=== PATIENT | male | born 1975 | race Caucasian/White ===

== ENCOUNTER 2017-04-08 16:52 | Inpatient (IN) | payer OTHER ==
[~2017-04-08] VITALS: Ht 182.9 cm; Wt 190.5 kg
[~2017-04-08 16:52] MED LIST: ATIVAN0.5 M1 PO; FOLIC ACID1 M1 PO; LISINOPRIL5 M1 PO; METOPROLOL TART25 M1 PO; MULTI-DAY VITA1 EACH PO; SEA-OMEGA 50 C1 EACH PO; TART CHERRY CA1 EACH PO; VITAMIN B-1100 MG PO; ZOLPIDEM TARTRAT5 M1 PO
--- NOTE | 2017-04-08 17:15 | NUR ---
PER FAMILY, PT HEAVILY INTOXICATED, PER FAMILY HE WILL NEED RESTRAINTS, AND MOTHER LEFT, IV ESTABLISHED UNDER DURESS, PT PULLED OUT IV. OBESE HEAVY MALE, MULTIPLE STAFF TO GET ON STRETCHER.
--- NOTE | 2017-04-08 17:55 | NUR ---
PT REPORTS I DONT TAKE ANY F....ING MEDS I JUST DRINK
--- NOTE | 2017-04-08 17:55 | NUR ---
SITTER IN PLACE. PT REMAINS INTERMITTANTLY BELIGERANT. AFTER LABS DRAWN PT RIPPED OFF BANDAID.
[2017-04-08 18:01] LABS: ABSOLUTE BASOPHIL COUNT 0.1 /CUMM (0.0-0.2); ABSOLUTE EOSINOPHIL COUNT 0.1 /CUMM (0.0-0.7); ABSOLUTE GRANULOCYTE CT 7.1 /CUMM (1.4-6.5); ABSOLUTE LYMPH COUNT 4.5 /CUMM (1.2-3.4); ABSOLUTE MONOCYTE COUNT 0.7 /CUMM (0.10-0.60); BASOPHIL % 0.5 % (0.0-2.0); EOSINOPHIL % 1.2 % (0-5); GRANULOCYTE % 56.5 % (42.2-75.2); HEMATOCRIT 47.9 % (42-52); MEAN CORPUSCULAR HGB 28.9 PG (27.0-31.0); MEAN CORPUSCULAR HGB CONC 33.6 G/DL (33.0-37.0); MEAN CORPUSCULAR VOLUME 85.9 FL (80.0-94.0); MEAN PLATELET VOLUME 8.1 FL (7.4-10.4); PLATELET COUNT 180 /CUMM (130-400); RBC DISTRIBUTION WIDTH 15.8 % (11.5-14.5); RED BLOOD CELL CT 5.57 /CUMM (4.70-6.10); WHITE BLOOD CELL COUNT 12.6 /CUMM (4.8-10.8)
--- NOTE | 2017-04-08 18:15 | NUR ---
PLACED IN HOSPITAL BED FOR SAFETY.
--- NOTE | 2017-04-08 18:35 | NUR ---
PER , DRINKING FOR 11 DAYS STRAIGHT, HX OF AFIB WHEN WITHDRAWS
--- NOTE | 2017-04-08 18:48 | RADIOLOGY REPORT ---
EXAMINATION: XR LUMBOSACRAL SPINE CLINICAL INFORMATION: Severe lower back pain. COMPARISON: None TECHNIQUE: AP and lateral views of the lumbosacral spine were obtained. FINDINGS: Lumbar: Bone mineral density, vertebral body height, and alignment is maintained without evidence of acute fracture or dislocation. There is no underlying curvature. No focal destructive or sclerotic osseous lesions are seen. There is mild loss of disc and joint space height with mild anterior endplate spurring. There is mild joint space narrowing in the visualized portions of the hips. IMPRESSION: Mild degenerative changes as noted.
--- NOTE | 2017-04-08 19:04 | NUR ---
PT AMBULATORY WITH SEMI STEADY GAIT TO BR WITH ASSIST OF 5 MALE EMPLOYEES. PT REMAINS AGITATED INTERMITTANTLY.
--- NOTE | 2017-04-08 19:05 | ULTRASOUND REPORT ---
EXAMINATION: US TRIPLEX LOWER EXTREMITY, LEFT CLINICAL INFORMATION: Left calf pain. COMPARISON: None. TECHNIQUE: Color-flow triplex imaging with spectral analysis and compression Doppler were performed on the lower extremity. FINDINGS: Respiratory variation, normal compression and augmented flow are noted throughout the left lower extremity. The visualized common femoral vein, femoral vein, profunda femoral vein, popliteal vein and midcalf peroneal and posterior tibial venous segments show no evidence of deep venous thrombosis. There is no Harrison's cyst. IMPRESSION: Normal triplex scan without evidence of deep venous thrombosis involving the lower extremity.
--- NOTE | 2017-04-08 19:14 | NUR ---
CALLED TO ROOM PT RPORTS HE NEEDS SOMETHING FOR WITHDRAWAL, VSS PT REPORTS HE SEIZES WHEN HE DRINKS. BP 132/82 HR 100 T98.4 R 24 SAT 100%
--- NOTE | 2017-04-08 19:19 | ED PSYCHIATRIC COMPLAINT ---
History of Present Illness General Chief Complaint: ETOH/Drug Related Complaint Stated Complaint: ETOH Source: patient Exam Limitations: poor historian, intoxication Vital Signs & Intake/Output Vital Signs & Intake/Output Vital Signs Date Time Temp Pulse Resp B/P B/P Pulse O2 O2 Flow FiO2 Mean Ox Delivery Rate 04/09 0545 98.0 93 22 144/74 04/09 0545 98.0 93 22 144/74 93 BIPAP 04/09 0445 100 22 130/72 04/09 0445 97.8 100 22 130/72 94 Room Air 04/09 0131 96.3 95 20 140/69 96 Room Air 04/09 0130 96.3 95 20 140/69 04/08 2113 98.8 88 22 135/79 04/08 2113 98.8 88 22 135/79 98 04/08 1919 98.4 100 24 132/82 100 Room Air 04/08 1757 98.1 93 30 Allergies Coded Allergies: NO KNOWN ALLERGIES (02/02/16) Reconcile Medications C/Sourcherry/Celery/Grape Seed (Tart Linn Capsule) 1 EACH CAPSULE 1 CAP PO DAILY SUPPLEMENT (Reported) Fish Oil (Sea-Martelle 50 Capsule) 1 EACH CAPSULE 1 CAP PO DAILY SUPPLEMENT ( Reported) Folic Acid 1 MG TABLET 1 TAB PO DAILY alcohol Lorazepam (Ativan) 0.5 MG TABLET 1 TAB PO BIDP PRN alcohol withdrawal Metoprolol Tartrate 25 MG TABLET 25 MG PO BID heart health Multivitamin (Multi-Day Vitamins) 1 EACH TABLET 1 TAB PO QAM SUPPLEMENT ( Reported) Thiamine HCl (Vitamin B-1) 100 MG TABLET 100 MG PO DAILY SUPPLEMENT Triage Note: PER FAMILY, PT HEAVILY INTOXICATED, PER FAMILY HE WILL NEED RESTRAINTS, AND MOTHER LEFT, IV ESTABLISHED UNDER DURESS, PT PULLED OUT IV. OBESE HEAVY MALE, MULTIPLE STAFF TO GET ON STRETCHER. Triage Nurses Notes Reviewed? yes HPI: Patient presents for evaluation of severe intoxication. Patient states his called the police and he was subsequently transported to the emergency department. He states that he is having severe left calf pain and low back pain. He is unable to state when symptoms began. Symptoms apparently get worse with movement and palpation. Patient admits to drinking more than a fifth of alcohol today. He has been drinking daily for the past week or so. (JESSICA LOGAN,YOGESH Ye) Past History Travel History Traveled to [place] past 21 day No Medical History Any Pertinent Medical History? see below for history Neurological: NONE EENT: NONE Cardiovascular: hypertension Respiratory: obstructive sleep apnea on CPAP Gastrointestinal: NONE Hepatic: NONE Renal: NONE Musculoskeletal: NONE Psychiatric: NONE Endocrine: NONE Blood Disorders: NONE Cancer(s): NONE UPHOLSTERY PARTS SORTER/Reproductive: NONE History of MRSA: No History of VRE: No History of CDIFF: No Isolation History: Standard Surgical History Surgical History: appendectomy Psychosocial History Who do you live with Patient/Self Services at Home None What is your primary language Chinese Tobacco Use: Refused to answer Family History Family History, If Any: MOTHER FH: multiple sclerosis Hx Contributory? No (JESSICA LOGAN,YOGESH Ye) Medical History Cardiovascular: AFIB Psychiatric: REPORTS ONE DETOX SEIZURE AT HOME (PRINCE LOGAN,LARRY) Review of Systems Review of Systems Constitutional: Reports: no symptoms. EENTM: Reports: no symptoms. Respiratory: Reports: no symptoms. Cardiovascular: Reports: no symptoms. GI: Reports: no symptoms. Genitourinary: Reports: no symptoms. Musculoskeletal: Reports: see HPI. Skin: Reports: no symptoms. Neurological/Psychological: Reports: no symptoms. Hematologic/Endocrine: Reports: no symptoms. Immunologic/Allergic: Reports: no symptoms. All Other Systems: Reviewed and Negative (JESSICA LOGAN,YOGESH Ye) Physical Exam Physical Exam General Appearance: SEE BELOW Neurological/Psychiatric: SEE BELOW Comments: Gen.: Well-nourished, well-developed, no acute respiratory distress. Head: Normocephalic, atraumatic. Eyes: Normal inspection bilaterally Ears: Normal inspection bilaterally Nose: Normal inspection Throat/mouth : Moist mucosa Neck: Supple, full range of motion, no goiter Heart: Regular rate and rhythm, no murmurs rubs or gallops Lungs: Clear to auscultation bilaterally with normal air entry Chest: Nontender Back: Normal range of motion, nontender exam, no rashes Abdomen: Soft, nontender, nondistended, normal bowel sounds Extremities: Normal range of motion grossly, equal radial pulses, no cyanosis clubbing or edema, tenderness of the left calf without erythema or palpable cords Neurologic: Cranial nerves grossly intact, speech is slurred Skin: warm and dry Psychiatric: Calm but prone to mild to moderate agitation, cooperative, no apparent delusions or hallucinations SAD PERSONS Done? patient not suicidal (JESSICA LOGAN,YOGESH Ye) Progress Differential Diagnosis: ALCOHOL INTOXICATION, ELECTROLYTE ABNORMALITY Plan of Care: Orders Procedure Date/time Status Heart Healthy Diet 04/09 B Active BASIC ELECTROLYTES PLUS BUN&CR 04/09 0600 Active Pathway - chart 04/09 0549 Active Patient Data 04/09 0531 Active Pathway - chart 04/09 0527 Active ED Holding Orders 04/09 0516 Active Admit to inpatient 04/09 0516 Active Vital Signs 04/09 0516 Active Code Status 04/09 0516 Active EKG 04/09 0455 Active Patient Safety Monitor 04/09 0239 Active House Staff 04/09 UNK Active VTE Mechanical Prophylaxis 04/09 UNK Active CONTIN. POSITIVE AIRWAY PRESS 04/08 2100 Complete CONTIN. POSITIVE AIRWAY PRESS 04/08 1938 Complete CIWA 04/08 1917 Active Intake & Output 04/08 1905 Active D-DIMER 04/08 1742 Complete Patient Safety Monitor 04/08 1726 Active LIPASE 04/08 1708 Complete ETHANOL 04/08 1708 Complete COMPREHENSIVE METABOLIC PANEL 04/08 1708 Complete CBC WITHOUT DIFFERENTIAL 04/08 1708 Complete AMYLASE 04/08 1708 Complete Current Medications Sig/Vamsi Start time Last Medication Dose Stop Time Status Admin Enoxaparin Sodium 40 MG DAILY 04/09 1000 UNVr (Lovenox) Folic Acid 1 MG DAILY 04/09 1000 AC (Folic Acid) 04/11 1001 Multivitamins 1 TAB DAILY 04/09 1000 AC (Theragran Vitamins) Thiamine HCl 100 MG DAILY 04/09 1000 AC (Vitamin B1) 04/11 1001 Lorazepam 2 MG Q8 04/09 0600 AC (Ativan) Acetaminophen 650 MG Q6P PRN 04/09 0545 AC (Tylenol) Cyanocobalamin/ 1 BAG ONCE ONE 04/09 0545 UNVr Thiamine/Pyridoxine 04/09 1344 (Vitamin in I.V.) Sodium Chloride 1,000 ML (Normal Saline 0.9%) Ibuprofen 600 MG Q6P PRN 04/09 0545 AC (Motrin) Oxycodone/ 2 TAB Q6P PRN 04/09 0545 AC Acetaminophen (Percocet) Lorazepam 2 MG ONCE ONE 04/09 0530 CAN (Ativan) 04/09 0531 Lorazepam 2 MG Q2P PRN 04/09 0530 AC (Ativan) Lorazepam 1 MG Q2P PRN 04/09 0530 AC (Ativan) Laboratory Tests 04/08/17 1750: Anion Gap 18 H, Estimated GFR > 60, BUN/Creatinine Ratio 8.8, Glucose 111 H, Calcium 9.1, Total Bilirubin 2.5 H, AST 47, ALT 54, Alkaline Phosphatase 120, Total Protein 8.2, Albumin 4.3, Globulin 3.9, Albumin/Globulin Ratio 1.1, Amylase 30, Lipase 58, D-Dimer High Sensitivty 248 H, CBC w Diff NO MAN DIFF REQ, RBC 5.57, MCV 85.9, MCH 28.9, RDW 15.8 H, MPV 8.1, Gran % 56.5, Lymphocytes % 36.2, Monocytes % 5.6, Eosinophils % 1.2, Basophils % 0.5, Absolute Granulocytes 7.1 H, Absolute Lymphocytes 4.5 H, Absolute Monocytes 0.7 H, Absolute Eosinophils 0.1, Absolute Basophils 0.1, PUBS MCHC 33.6, Serum Alcohol 399.0 7:15 PM PATIENT SIGNED OUT TO ME BY DR LOPEZ. RECEIVED IM INJECTIONS ATIVAN/BENADRYL / HALDOL. CPAP ORDERED. WILL STAY OVERNIGHT FOR SOBRIETY. DOES NOT WANT DETOX. 5:17AM PATIENT FEELING SHAKY, CIWA 12. NOW WANTS IN PATIENT DETOX. NO SI/HI, ATIVAN ADMINISTERED. H/O WD SEIZURE, PREVIOUS RAPID AFIB. CURRENTLY SINUS RHYTHM. D/ W HOSPITALIST. (PRINCE LOGAN,LARRY) Comments: 04/08/2017 7:17:07 PM the patient is worried that he is beginning to withdraw from alcohol. According to his nurse he commented that he does have alcohol withdrawal seizures. He appears anxious and is beginning to escalate and seems to be increasing and agitation. I have ordered IM sedatives with his agreement. Patient signed out to Dr. Martin. (JESSICA LOGAN,YOGESH Ye) Diagnostic Imaging: Viewed by Me: Radiology Read, Ultrasound. Discussed w/RAD: Radiology Read, Ultrasound. Radiology Impression: PATIENT: GABBIE ELLER PRESENT AGE: 41 PATIENT ACCOUNT NO: [id number] : 76 LOCATION: [facility] ORDERING PHYSICIAN: YOGESH LOPEZ MD SERVICE DATE: 04/08/17 EXAM TYPE: US - US- UNILATERAL VENOUS DOPPLER EXAMINATION: US TRIPLEX LOWER EXTREMITY, LEFT CLINICAL INFORMATION: Left calf pain. COMPARISON: None. TECHNIQUE: Color-flow triplex imaging with spectral analysis and compression Doppler were performed on the lower extremity. FINDINGS: Respiratory variation, normal compression and augmented flow are noted throughout the left lower extremity. The visualized common femoral vein, femoral vein, profunda femoral vein, popliteal vein and midcalf peroneal and posterior tibial venous segments show no evidence of deep venous thrombosis. There is no Harrison's cyst. IMPRESSION: Normal triplex scan without evidence of deep venous thrombosis involving the lower extremity. DICTATED BY: DINORA GALE MD DATE/TIME DICTATED:04/08/171852 GENERAL MEDICAL PRACTITIONER:OSMANY DATE/TIME TRANSCRIBED:04/08/171852 CONFIDENTIAL, DO NOT COPY WITHOUT APPROPRIATE AUTHORIZATION. <Electronically signed in Other Vendor System> SIGNED BY: DINORA GALE MD 04/08/171904, PATIENT: GABBIE ELLER PRESENT AGE: 41 PATIENT ACCOUNT NO: [id number] : 76 LOCATION: ER ORDERING PHYSICIAN: YOGESH LOPEZ MD SERVICE DATE: 04/08/17 EXAM TYPE: RAD - XRY-LUMBOSACRAL SPINE AP & LAT EXAMINATION: XR LUMBOSACRAL SPINE CLINICAL INFORMATION: Severe lower back pain. COMPARISON: None TECHNIQUE: AP and lateral views of the lumbosacral spine were obtained. FINDINGS: Lumbar: Bone mineral density, vertebral body height, and alignment is maintained without evidence of acute fracture or dislocation. There is no underlying curvature. No focal destructive or sclerotic osseous lesions are seen. There is mild loss of disc and joint space height with mild anterior endplate spurring. There is mild joint space narrowing in the visualized portions of the hips. IMPRESSION: Mild degenerative changes as noted. DICTATED BY: TAVO MCKEON MD DATE/TIME DICTATED:04/08/171842 GENERAL MEDICAL PRACTITIONER: OSMANY DATE/TIME TRANSCRIBED:04/08/171842 CONFIDENTIAL, DO NOT COPY WITHOUT APPROPRIATE AUTHORIZATION. <Electronically signed in Other Vendor System> SIGNED BY: TAVO MCKEON MD 04/08/171847, PATIENT: GABBIE ELLER PRESENT AGE: 41 PATIENT ACCOUNT NO: [id number] : 76 LOCATION: ER ORDERING PHYSICIAN: YOGESH LOPEZ MD SERVICE DATE: 04/08/17 EXAM TYPE: RAD - [id number], LEFT EXAMINATION: XR TIBIA AND FIBULA, LEFT CLINICAL INFORMATION: Pain. COMPARISON: None TECHNIQUE: AP and lateral views of the left tibia and fibula were obtained. Please note at the time of this dictation, images are labeled right, however according to Margo Silver, the PSA, the left lower extremity was imaged. FINDINGS: Bone mineral density is maintained without evidence of fracture or dislocation. No focal osseous lesions are seen. There is joint space narrowing in the knee with mild hypertrophic productive change. Soft tissue calcifications suggest chronic stasis. IMPRESSION: No fracture or dislocation. There are degenerative changes in the knee. DICTATED BY: TAVO MCKEON MD DATE/TIME DICTATED:04/08/171923 GENERAL MEDICAL PRACTITIONER:OSMANY DATE/TIME TRANSCRIBED:04/08/171923 CONFIDENTIAL, DO NOT COPY WITHOUT APPROPRIATE AUTHORIZATION. <Electronically signed in Other Vendor System> SIGNED BY: TAVO MCKEON MD 04/08/172033 Initial ED EKG: NSR (LARRY MARTIN MD) Departure Departure Disposition: STILL A PATIENT Condition: Stable Referrals: SHYANNE VENTURA MD (PCP/Family) Departure Forms: Customer Survey General Discharge Information (JESSICA LOGAN,YOGESH Ye) Departure Time of Disposition: 516 Clinical Impression Primary Impression: Alcohol dependence with withdrawal Secondary Impressions: Sleep apnea Admission Note Spoke With: CLEOPATRA KENDALL MD Documentation of Exam: Documentation of any treatments & extenuating circumstances including Concerns Regarding Discharge (functional status, medication knowledge or non-compliance, living conditions, etc.) that warrant an admission rather than observation: [ CIWA PROTOL, ATIVAN TAPER, CPAP, CONSIDER PULMONARY CONSULTATION, CRISIS EVALUATION] (LARRY MARTIN MD)
--- NOTE | 2017-04-08 19:38 | NUR ---
RESP CONTACTED FOR CPAP. PT REORTS SLEEP APNEA HX.
--- NOTE | 2017-04-08 20:14 | NUR ---
PT ASKED AGAIN FOR CPAP, AWAITS RESP FOR CPAP
--- NOTE | 2017-04-08 20:34 | RADIOLOGY REPORT ---
EXAMINATION: XR TIBIA AND FIBULA, LEFT CLINICAL INFORMATION: Pain. COMPARISON: None TECHNIQUE: AP and lateral views of the left tibia and fibula were obtained. Please note at the time of this dictation, images are labeled right, however according to Margo Silver, the PSA, the left lower extremity was imaged. FINDINGS: Bone mineral density is maintained without evidence of fracture or dislocation. No focal osseous lesions are seen. There is joint space narrowing in the knee with mild hypertrophic productive change. Soft tissue calcifications suggest chronic stasis. IMPRESSION: No fracture or dislocation. There are degenerative changes in the knee.
--- NOTE | 2017-04-08 20:50 | NUR ---
PER RESP 10 MORE MINUTES FOR CPAP PT AGITATED.
--- NOTE | 2017-04-08 20:59 | NUR ---
PLACED ON AUTOPAP 5018CM FOR SLEEP. PT WITH BOBBY, USES CPAP AT HOME, SETTINGS UNKNOWN. TAMMY WELL AT THIS TIME.
--- NOTE | 2017-04-08 21:11 | NUR ---
PT REMAINS RESTLESS, PUSHES PASSED SIITER TO GO TO BR REFUSES SLIPPERS, PEED ON FLOOR.
[2017-04-08 21:13] VITALS: BP 135/79
--- NOTE | 2017-04-08 23:10 | NUR ---
PT SLEEPING ON STRETCHER. SITTER PRESENT
[2017-04-09] VITALS (13 sets, daily range): BP systolic 118–160; BP diastolic 69–94
--- NOTE | 2017-04-09 00:06 | NUR ---
PT REFUSED VITAL SIGNS AND CONTINUED TO SLEEP ON HOSPITAL STRETCHER. PT NOT SWEATING, SHAKING, OR DISPLAYING ANY OTHER SIGNS OF ACUTE ALCOHOL WITHDRAWL. SITTER PRESENT
--- NOTE | 2017-04-09 01:02 | NUR ---
PT CHECKED, ASLEEP ON RA OFF CPAP, REFUSING VITALS ETC
--- NOTE | 2017-04-09 03:55 | NUR ---
ASSUMED CARE OF PATIENT AT THIS TIME. PATIENT SLEEPING W/ CPAP IN PLACE, PATIENT SELF TURNING AND REPOSITIONING ON HOSPITAL BED.
--- NOTE | 2017-04-09 04:47 | NUR ---
PATIENT AWOKE FROM SLEEP STATES "I'M HAVING A REALLY BAD PANIC ATTACK." PATIENT SHAKING HIS ARMS AND STATING REPEATEDLY "I'M HAVING A REALLY BAD PANIC ATTTACK. I NEED ATIVAN. I NEED ATIVAN NOW." VS OBTAINED. CIWA COMPLETED. MD MORRISON AWARE. PATIENT MEDICATED W/ ATIVAN 2MG PER EMAR. TOLERATED WELL. WHEN INQUIRED REGARDING PATIENT POC AND PATIENT DESIRE TO STAY AND SPEAK W/ CRISIS THIS AM, PATIENT REPORTS "NO, I'M DETOXING RIGHT NOW, SO I DON'T WANT TO SPEAK TO CRISIS. NO THANKS." MD MORRISON AWARE AND WILL SPEAK W/ PATIENT REGARDING POC/ PATIENT DESIRE FOR DETOX W/ REFUSAL TO SPEAK W/ CRISIS.
--- NOTE | 2017-04-09 05:02 | NUR ---
S/P MD DISCUSSION W/ PATIENT, PATIENT POC PER MD TO ADMIT MEDICALLY FOR ETOH DETOX. PATIENT REPORTING "FEEL NAUSEOUS NOW." PATIENT NOTED W/ BILE INTO BASIN APPROX 20ML. PATIENT REPORTING, "I MUST HAVE THROW UP THAT ATIVAN SO I NEED IT A SHOT LIKE BEFORE." PATIENT OFFERED ZOFRAN PER EMAR. AWARE ORDER IS FOR IV ZOFRAN, PATIENT REPORTS "I RIPPED OUT MY IV BEFORE." INQUIRED TO RATIONALE FOR PATIENT D/CING HIS OWN IV PREVIOUSLY, PATIENT STATES, "I DON'T KNOW," AND SHRUGS SHOULDERS. PATIENT CONTINUES TO REQUEST ATIVAN IM AND ALSO REQUESTING "SOMETHING TO MAKE ME SLEEP." MD MORRISON INFORMED PATIENT REQUESTING TO SPEAK W/ HER. PATIENT ALSO REFUSING ZOFRAN AND REFUSING IV ACCESS AT THIS TIME, STATES "I WANT TO TALK TO THE DOCTOR FIRST." PATIENT ALSO HX AFIB W/ ETOH DETOX IN PAST, EKG IN PROGRESS.
--- NOTE | 2017-04-09 05:13 | NUR ---
EKG DONE AND SHOWN TO DR. MORRISON. MD MORRISON AT BEDSIDE.
--- NOTE | 2017-04-09 05:45 | NUR ---
PATIENT AWAKE, REPORTS "I'M STILL VERY ANXIOUS AND I THINK I'M HAVING A HEART ATTACK BECAUSE I NEED MORE ATIVAN AND I WANT AMBIEN FOR MY ANXIETY." PATIENT EDUCATED REGARDING MEDICATED W/ ATIVAN 2MG PO AT ALSO EDUCATED THAT AMBIEN IS INDICATED FOR INSOMNIA, NOT ANXIETY. PATIENT CONTINUES TO REQUEST AMBIEN AND ATIVAN. PATIENT PLACED ON BODY AND FRAME MAN, VS OBTAINED. HR:93 NSR ON MONITOR W/ NO ECTOPY AND +PRESENCE OF P-WAVES. DENIES ANY CP. SITTER REMAINS W/ PATIENT.
--- NOTE | 2017-04-09 06:02 | NUR ---
PATIENT SLEEPING ON HOSPITAL BED AT THIS TIME, HR: 73, NSR ON MONITOR WHILE PATIENT SLEEPING. REGULSR RESPIRATIONS. SITTER REMAINS W/ PATIENT.
--- NOTE | 2017-04-09 06:07 | History & Physical ---
SCARLET LOGAN,[facility] 04/09/17 0606: General Information and HPI MD Statement: I have seen and personally examined GABBIE PAREKH and documented this H&P. The patient is a 41 year old M who presented with a patient stated chief complaint of [alcohol detox]. Source of Information: patient, old records Exam Limitations: no limitations History of Present Illness: Mr. Parekh is 41 year old male with past medical history significant for morbid obesity, alcohol dependence, alcohol related seizure and ICU admission, anxiety who brought to ED by his for alcohol detox. Patient had detox on January 2016, states sober for 1 year and decided to restart drinking 3 weeks ago. Patient has been drinking half gallon daily, last drink was liter of vodka yesterday at 10 AM. Patient denied any seizure during last year. Patient reported palpitation, shortness of breath, sweating, right calf pain. Denied chest pain, fever, abdominal pain, nausea or vomiting, dysuria, diarrhea or constipation, change in color of skin or itching. Patient denied any stress at work, couldn't explain why he decided to restart drinking. Patient had 2 admissions to inpatient alcohol rehabilitation last one was last year. Patient denied any illicit drug, used to chew tobacco for the last 2 years. 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 spouse Services at Home: None Primary Language: Luxembourgish Functional Ability ADLs Independent: dressing, eating, toileting, bathing. Ambulation: independent Review of Systems Review of Systems Constitutional: Reports: see HPI. Exam & Diagnostic Data Last 24 Hrs of Vital Signs/I&O Vital Signs Date Time Temp Pulse Resp B/P B/P Pulse O2 O2 Flow FiO2 Mean Ox Delivery Rate 04/09 0645 98 18 04/09 0615 98.2 85 20 149/70 04/09 0613 98.2 85 20 149/70 99 Room Air 04/09 0545 98.0 93 22 144/74 04/09 0545 98.0 93 22 144/74 93 BIPAP 04/09 0445 100 22 130/72 04/09 0445 97.8 100 22 130/72 94 Room Air 04/09 0131 96.3 95 20 140/69 96 Room Air 04/09 0130 96.3 95 20 140/69 04/08 2113 98.8 88 22 135/79 04/08 2113 98.8 88 22 135/79 98 04/08 1919 98.4 100 24 132/82 100 Room Air 04/08 1757 98.1 93 30 Physical Exam General Appearance Alert, Oriented X3, Cooperative, No Acute Distress Skin No Rashes, No Breakdown, No Significant Lesion Skin Temp/Moisture Exam: Warm/Dry HEENT Atraumatic, PERRLA, EOMI, Mucous Membr. moist/pink Neck Supple Cardiovascular Regular Rate, Normal S1, Normal S2, No Murmurs Lungs Clear to Auscultation, Normal Air Movement Abdomen Normal Bowel Sounds, Soft, No Tenderness, No Hepatospenomegaly, No Masses Neurological Normal Gait, Normal Speech, Strength at 5/5 X4 Ext, Normal Tone, Sensation Intact, Cranial Nerves 3-12 NL, Reflexes 2+, fine tremors Extremities No Clubbing, No Cyanosis, No Edema, Normal Pulses, No Tenderness/ Swelling, skin changes from venous stasis Last 24 Hrs of Labs/Adonay: Laboratory Tests 04/09/17 0634: Anion Gap 15, Estimated GFR > 60, BUN/Creatinine Ratio 8.8 04/08/17 1750: Anion Gap 18 H, Estimated GFR > 60, BUN/Creatinine Ratio 8.8, Glucose 111 H, Calcium 9.1, Total Bilirubin 2.5 H, AST 47, ALT 54, Alkaline Phosphatase 120, Total Protein 8.2, Albumin 4.3, Globulin 3.9, Albumin/Globulin Ratio 1.1, Amylase 30, Lipase 58, D-Dimer High Sensitivty 248 H, CBC w Diff NO MAN DIFF REQ, RBC 5.57, MCV 85.9, MCH 28.9, RDW 15.8 H, MPV 8.1, Gran % 56.5, Lymphocytes % 36.2, Monocytes % 5.6, Eosinophils % 1.2, Basophils % 0.5, Absolute Granulocytes 7.1 H, Absolute Lymphocytes 4.5 H, Absolute Monocytes 0.7 H, Absolute Eosinophils 0.1, Absolute Basophils 0.1, PUBS MCHC 33.6, Serum Alcohol 399.0 Assessment/Plan Assessment: Mr. Parekh is 41 year old male with past medical history significant for morbid obesity, alcohol dependence, alcohol related seizure and ICU admission, anxiety who brought to ED by his for alcohol detox. On admission vitals 98.1, pulse 93, blood pressure 132/82, saturating 100% on room air Lab pertinant to d-dimer 248 Lower extremity Dopplers negative for DVT Tibia and fibula x-ray negative for fracture Lumbar spine positive for mild degenerative changes Problem left #Alcohol detox #Hypertension #Morbid obesity #Aneixity Plan -Admit to general medical floor -Ativan 2 mg every 6 -Ativan per CIWA score -Continue home medication amlodipine, monitor blood pressure -Vitals every shift -Weight reduction counseling -Nicotine patch -DVT prophylaxis Lovenox -Diet heart healthy -Seizure precaution -Code full As Ranked By This Provider Problem List: 1. Alcohol dependence with withdrawal 2. Seizure Core Measures/Miscellaneous Acute Coronary Syndrome ACS Diagnosis: No Cerebrovascular Accident CVA/TIA Diagnosis: No Congestive Heart Failure CHF Diagnosis: No VTE (View Protocol) VTE Risk Factors: Age > 40 No [facility] VTE prophylaxis d/t: No contraindications No VTE Pharm Prophylaxis d/t: No contraindications VTE Diagnosis: No VTE Type: Deep Venous Thrombosis VTE Confirmed by (Test): DUPLEX VENOUS EXTREM UNI Sepsis (View Protocol) Severe Sepsis Present: No Septic Shock Septic Shock Present: No Miscellaneous Documentation Attending Case Discussed With: JV DUEÑAS MD Primary Care Physician: SHYANNE VENTURA MD Patient sees these Specialists none Level of Patient Care: General Medicine MERCEDEZ SMITH MD 04/09/17 0632: Resident Review Statement Resident Statement: examined this patient, discussed with international logistics coordinator, agreed with international logistics coordinator Other Findings: 41-year-old male with past medical history significant for morbid obesity, alcohol dependence with multiple admissions for detox, alcohol related seizure, and anxiety who presents for alcohol detox. Patient was brought by his family for detox and reports that his last drink was around 10 AM yesterday and he started having symptoms of withdrawal around 2 PM. He drinks half a gallon of vodka every day and was sober for almost a year before restarting about 3 weeks ago. His last alcohol detox admission was a year ago and was complicated by alcohol induced seizures and ICU admission. Patient went to inpatient rehabilitation at [facility] for about 2 weeks. He endorses palpitations and some mild shortness of breath but denies chest pain, abdominal pain, nausea, vomiting or fever. He any denies seizures. He has been chewing tobacco for the past 2-3 years and prior to that smoked cigarettes occasionally. He reports that his only medication is Ambien and Xanax which he takes for sleep at night. He denies a hx of HTN but med list shows metoprolol whcih may have been started during his last ETOH detox Exam and labs as above Assessment 1. Alcohol detox 2. Alcohol-related seizures 3. Hypertension 4. Morbid obesity 5. Tobacco use disorder Plan Admit to general medicine floor Start IV Ativan prior CIWA protocol and scheduled by mouth Ativan 2mg Qhrs and tr Banana bag 1 then start by mouth thiamine, folate and multivitamin daily Seizure precautions Watch for elevated BP Heart healthy diet SW consult DVT ppx lovenox FC LEANA LOGAN,DYANA 04/09/17 1342: General Information and HPI Allergies/Medications Home Med list C/Sourcherry/Celery/Grape Seed (Tart [place]inn Capsule) 1 EACH CAPSULE 1 CAP PO DAILY SUPPLEMENT (Reported) Fish Oil (Sea-[place] 50 Capsule) 1 EACH CAPSULE 1 CAP PO DAILY SUPPLEMENT ( Reported) Folic Acid 1 MG TABLET 1 TAB PO DAILY alcohol Lorazepam (Ativan) 0.5 MG TABLET 1 TAB PO BIDP PRN alcohol withdrawal Multivitamin (Multi-Day Vitamins) 1 EACH TABLET 1 TAB PO QAM SUPPLEMENT ( Reported) Thiamine HCl (Vitamin B-1) 100 MG TABLET 100 MG PO DAILY SUPPLEMENT Attending MD Review Statement Attending Statement Attending MD Statement: examined this patient, discuss w/resident/PA/TAX PREPARER, agreed w/resident/PA/TAX PREPARER, reviewed EMR data (avail) Attending Assessment/Plan: 41M PMH EtOH abuse, morbid obesity, history of alcohol withdrawal seizure presenting in alcohol withdrawal with agitation, palpitations, diaphoresis, sinus tach 110's. No evidence of delirium at this time, no recent seizure, last drink 24 hours prior, extensive drinking history. Labs reviewed. 1. Alcohol withdrawal 2. History of alcohol withdrawal delirium Plan - Admit to general medicine - Ativan standing and PRN per CIWA - IV hydration - Vitamin supplementation - Recheck electrolytes tomorrow - Continue home medications - Social work consult - Nutrition consult for weight loss plan. Would benefit from bariatric referral on discharge - DVT PPx
--- NOTE | 2017-04-09 06:20 | NUR ---
IV EST #20 RIGHT HAND. PATIENT CONTINUES TO STATE "I'M HAVING A PANIC ATTACK. I NEED MORE ATIVAN." HOUSE STAFF AT BEDSIDE EVALUATING PATIENT. JAIME GIBSON AT BEDSIDE FOR AM BLOODWORK.
--- NOTE | 2017-04-09 06:42 | NUR ---
BANANA BAG INFUSING AT 125ML/HR PER EMAR. TOLERATING WELL. PATIENT CONTINUES TO ASK MULTIPLE STAFF MEMBERS FOR ATIVAN. PATIENT NOW STATES HE IS VOMITTING, DRY HEAVING NOTED. PATIENT OFFERED ZOFRAN, REFUSING STATING "IT'S NOT NAUSEA, IT'S ANXIETY! I NEED ATIVAN IN THE IV." PATIENT AWARE ATIVAN ORDERED IS PO AND CAN NOT BE ADMINISTERED WHILE PATIENT IS DRY HEAVING/ VOMITTING. MD AWARE AND PATIENT INFORMED WAITING. ANOTHER CIWA IN PROGRESS. CIWA SCORE AT 0615- 6.
--- NOTE | 2017-04-09 06:53 | NUR ---
PATIENT MEDICATED W/ IV ATIVAN 1MG PER PRN CIWA ORDER. TOLERATED WELL.
--- NOTE | 2017-04-09 06:54 | NUR ---
IV SITE PROTECTED W/ COBAN D/T PATIENT PULLING OUT IV SITE 1.
--- NOTE | 2017-04-09 07:14 | NUR ---
PT HAS BED ASSIGNMENT 207-1
--- NOTE | 2017-04-09 07:20 | NUR ---
ASSUMED CARE AT THIS TIME, PT AWAKE AND ALERT, NOTED TO BE DRY HEAVING AND PER PREVIOUS NURSE PT REFUSED ZOFRAN STATING THAT HE NEEDS ATIVAN AND NOT ZOFRAN. PT REQUESTING SODA , AWARE AT THIS TIME THAT HE IS DRY HEAVING AND THAT AT THIS TIME HE WOULD HAVE TO WAIT FOR THE NAUSEA TO STOP. NO VISIBLE TREMORS NOTED HR 100-120 WHILE DRY HEAVING . WHILE AT REST NSR ON MONITOR HR 74. SITTER REMAINS WITH PT
--- NOTE | 2017-04-09 08:14 | NUR ---
REPORT TO FLOOR. HOUSE STAFF AT BEDSIDE AND REQUEST THAT PT BE MEDICATED WITH 1 MG IV ATIVAN DUE TO HE IS COMPLAINING OF ANXIETY. NSR ON MONITOR HR 84 AND NO VISIBLE TREMORS NOTED
--- NOTE | 2017-04-09 10:27 | NUR ---
PT ARRIVED TO FLOOR FROM ED AT 0945 VIA WHEELCHAIR. IV INTACT WITH BANANA BAG RUNNING THROUGH RH IV. A/OX3; VSS; DENIES PAIN; COMPLAINT OF ANXIETY STATING, "I AM HAVING AN ANXIETY ATTACK AND CANNOT BREATH AND MY HEART IS RACING." VITALS RECHECKED AND STABLE. MD LUCILLE DUMONT TEXTED PAGE ABOUT THIS ISSUE. SAFETY MONITOR WITH PT ON ARRIVAL. IV ATIVAN ADMINISTERED PER CIWA SCALE AND EMAR. PT ORIENTED TO ROOM AND CALL LOPEZ. PT IS WEARING STREET CLOTHES AND IS REFUSING TO WEAR JADE COAT. BARIATRIC ALPS CANNOT BE APPLIED DUE TO NOT FITTING.
--- NOTE | 2017-04-09 10:33 | NUR ---
PT IS COMPLAINING OF NAUSEA AND THREW UP A SMALL AMOUNT WITH SOME DRY HEAVING. MD LUCILLE DUMONT MADE AWARE THROUGH TEXT PAGE.
--- NOTE | 2017-04-09 10:34 | NUR ---
Referral received this am via electronic billet recorder. This patient is a 41 year old man, admitted to the hospital early this morning after presentation to the ED last evening intoxicated. Patient admitted for ETOH Detox; one of 3 admissions for the same diagnosis for the past few years. In the ED last evening patient was agitated and argumentative; required a does of haldol, and has had 9 mg of ativan in the past 24 hours. Previous aftercare plans have included referrals to our IOP and he has failed to keep those appointments. Will follow to better assess interest and motivation inaftercare.
--- NOTE | 2017-04-09 10:59 | NUR ---
RECIEVED PATIENT FROM ADMITTING RN DAKOTAH; PATIENT NOW SLEEPING COMFORTABLY IN BED WITH CPAP IN PLACE; BANANA BAG INFUSING PER ORDER; BARIATRIC ALPS DO NOT FIT (DR DUMONT AWARE); PATIENT SAFETY MONITOR AT BEDSIDE; NEEDS WITHIN REACH; SAFETY MAINTAINED;
--- NOTE | 2017-04-09 13:44 | Admission Certification ---
Admission Certification Certification Statement - As attending physician, I certify that at the time of - admission, based on clinical presentation, severity of - symptoms, need for further diagnostic testing and - therapeutic interventions, and risk of adverse outcomes - without in-hospital treatment, in my clinical assessment, - this patient requires an acute hospital stay for a minimum - of two nights or longer. I have also considered psychsocial - factors such as support system, advanced age, financial - issues, cognitive issues, and failed out-patient treatments, - past re-admission history, safety of patient, and lack of - compliance as applicable. Specific rationale supporting this admission is: Alcohol withdrawal with history of seizure
--- NOTE | 2017-04-09 20:17 | NUR ---
ALERT AND ORIENTED X 3. ON ROOM AIR. DENIES SHORTNESS OF BREATH DENIES CHEST PAIN. + PULSES. +1 EDEMA TO BLE. DENIES NUMBNESS/TINGLING STEADY GAIT. SKIN C/D/I. ON CIWA PROTOCOL. PATIENT RESTING AT THIS TIME. WILL CONTINUE TO MONITOR
[2017-04-10] VITALS (8 sets, daily range): BP systolic 130–140; BP diastolic 74–82
--- NOTE | 2017-04-10 09:02 | PN- Housestaff ---
LUCILLE DUMONT 04/10/17 0851: Subjective Follow-up For: Alcohol abuse Hypertension Severe anxiety and depression Subjective: This morning patient is alert, awake and oriented. He is feeling tired and complaining of insomnia due to family stress. He used CPAP overnight. He denies any chest pain or discomfort, nausea, vomiting. Reports poor appetite and constipation. Review of Systems Constitutional: Reports: see HPI. Objective Last 24 Hrs of Vital Signs/I&O Vital Signs Date Time Temp Pulse Resp B/P B/P Pulse O2 O2 Flow FiO2 Mean Ox Delivery Rate 04/10 0646 98.7 77 19 136/74 98 Room Air 04/10 0357 CPAP 04/10 0000 CPAP 04/09 2159 68 97 04/09 2153 98.6 75 19 140/84 96 04/09 2000 98.5 75 20 160/80 04/09 1830 98.5 75 20 160/80 97 Room Air 04/09 1800 98.2 83 20 130/70 04/09 1600 98.2 83 20 130/70 04/09 1401 98.2 83 20 130/70 93 Room Air 04/09 1000 89 24 96 Room Air 04/09 0943 98.3 110 20 118/80 98 Room Air Intake & Output 04/10 1600 04/10 0800 04/10 0000 Intake Total 400 Output Total Balance 400 Intake, Oral 400 Physical Exam General Appearance: Alert, Oriented X3, Cooperative, No Acute Distress, obese Neck: Supple Cardiovascular: Regular Rate, No Murmurs Lungs: Clear to Auscultation Abdomen: Normal Bowel Sounds, Soft, No Tenderness, obese Extremities: varicose veins Current Medications: Current Medications Sig/Vamsi Start time Last Medication Dose Route Stop Time Status Admin Acetaminophen 650 MG Q6P PRN 04/09 0545 DC PO Alprazolam 0.5 MG ONCE ONE 04/10 0830 DC PO 04/10 0831 Clonidine 0.1 MG TID PRN 04/09 0930 AC PO Cyanocobalamin/ 1 BAG DAILY 04/09 1000 DC Thiamine/Pyridoxine IV 04/11 1759 Sodium Chloride 1,000 ML Cyanocobalamin/ 1 BAG ONCE ONE 04/09 0545 DC 04/09 Thiamine/Pyridoxine IV 04/09 1344 0641 Sodium Chloride 1,000 ML Enoxaparin Sodium 40 MG DAILY 04/09 1000 AC 04/09 SC 1353 Folic Acid 1 MG DAILY 04/09 1000 AC PO 04/11 1001 Ibuprofen 600 MG Q6P PRN 04/09 0545 AC 04/09 PO 1510 Lorazepam 1 MG Q12H 04/11 0000 DC PO 04/11 1201 Lorazepam 1.5 MG Q8 04/10 1400 UNVr PO Lorazepam 1.5 MG Q6 04/10 0600 DC PO 04/10 1801 Lorazepam 2 MG Q6 04/09 1200 DC 04/10 PO 0548 Lorazepam 2 MG Q2P PRN 04/09 0530 AC 04/09 IV 1017 Lorazepam 1 MG Q2P PRN 04/09 0530 AC 04/10 IV 0025 Melatonin 10 MG ONCE ONE 04/09 1915 DC 04/09 PO 04/09 191 1919 Multivitamins 1 TAB DAILY 04/09 1000 AC PO Nicotine 14 MG DAILY 04/09 1000 AC TOP Oxycodone/ 2 TAB Q6P PRN 04/09 0545 DC 04/09 Acetaminophen PO 1211 Patient Medication 1 ED .STK-MED ONE 04/09 1411 DC Teaching ED 04/09 1412 Thiamine HCl 100 MG DAILY 04/09 1000 AC PO 04/11 1001 Orders CIWA Score (last 24 hrs): 2-10 Assessment/Plan Assessment: Mr. Parekh is 41 year old man with past medical history significant for morbid obesity, alcohol dependence, alcohol related seizure, anxiety and obstructive sleep apnea on CPAP at night. Problem list 1. Alcohol abuse 2. Severe anxiety and depression 3. HTN. stable PLAN * Monitor vitals closely * Keep electrolytes within normal range * Continue CIWA protocol and Ativan as needed per CIWA * Tapered down scheduled Ativan to 1.5 mg Q8 * Continue multivitamins/folic acid/thiamine * Social work consult * Psych consult * DVT prophylaxis * Full code Problem List: 1. ETOH abuse Pain Ratin Pain Location: left foot toe Pain Goal: Remain pain free Pain Plan: motrin Tomorrow's Labs & Rationales: none DVT/Prophylaxis: pharmacological MYRIAM HOLLAND 04/10/17 0940: Attending MD Review Statement Attending Statement Attending MD Statement: examined this patient, discuss w/resident/PA/MECHANICS HANDYMAN, agreed w/resident/PA/MECHANICS HANDYMAN, discussed with family, reviewed EMR data (avail), discussed with nursing, discussed with case mgmt, reviewed images, amended to note Attending Assessment/Plan: 1. Alcohol withdrawal 2. History of alcohol withdrawal delirium Plan - Admit to general medicine - Ativan standing and PRN per CIWA - IV hydration - Vitamin supplementation - Replace electrolytes - Continue home medications - Social work consult - Nutrition consult for weight loss plan. Would benefit from bariatric referral on discharge - DVT PPx
--- NOTE | 2017-04-10 13:50 | NUR ---
Met with Ramana this am. He was alert and engaged in interview. Discloses ETOH dependence as a "binge"; has currently been drinking daily for 2 weeks, but has been going to work as well. Minimizes severity of ETOH misuse; quick to say that it was not the alcohol that brought him to the hospital but rather that pain in his legs and back. Not willing to commit to IOP level of care; reports good sober support at home with family. Patient was willing to accept information about the IOP; I provided patient with the phone number. I will see patient again prior to discharge to reassess his interest and motivation in treatment.
--- NOTE | 2017-04-10 15:10 | Incdntl Nt Psy ---
Incidental Note Notation: Patient declines psychiatric consult, stating he received the information he needed from social work today. Plan - Please reconsult psychiatry if patient changes mind.
--- NOTE | 2017-04-10 22:23 | NUR ---
NURSING NOTE: PT REMAINS VERY ANXIOUS. SCORING 8 ON CIWA. PRN ATIVAN NOT AVAILABLE. MD ROMAN PAGED. AWAITING ORDERS.
[2017-04-11] VITALS: BP 140/80
[2017-04-11 01:52] VITALS: BP 130/86
[2017-04-11 02:00] VITALS: BP 130/86
[2017-04-11 04:00] VITALS: BP 130/86
[2017-04-11 06:00] VITALS: BP 130/80
[2017-04-11 06:17] VITALS: BP 130/80
--- NOTE | 2017-04-11 07:53 | RADIOLOGY REPORT ---
EXAMINATION: XR FOOT, LEFT CLINICAL INFORMATION: Pain. Second toe fracture. COMPARISON: None TECHNIQUE: AP, lateral, and oblique views of the left foot. FINDINGS: There is a contour irregularity at the articular base of the second digit middle phalanx. Mild impaction is seen at this site. The fracture line is difficult to visualize, and this could be in part chronic. Degenerative changes are seen at the first metatarsophalangeal joint with joint space narrowing and osteophytes. Diffuse soft tissue swelling. Tiny heel spurs. IMPRESSION: Contour irregularity at the proximal articulation of the second digit middle phalanx is likely associated with a fracture of uncertain chronicity, as a fracture line is difficult to visualize. Correlate with area of pain.
--- NOTE | 2017-04-11 08:02 | Discharge Summary ---
Visit Information Visit Dates Admission Date: 04/09/17 Discharge Date: 04/11/17 Hospital Course Course Attending Physician: MYRIAM HOLLAND MD Primary Care Physician: SHYANNE VENTURA MD Hospital Course: 41-year-old male with past medical history significant for morbid obesity, alcohol dependence with multiple admissions for detox, alcohol related seizure, obstructive sleep apnea on CPAP at night, previous history of rapid A. fib x 1 not on any AC or rate controlling medications and severe anxiety. Vital Signs Date Time Temp Pulse Resp B/P B/P Pulse O2 O2 Flow FiO2 Mean Ox Delivery Rate 04/09 0545 98.0 93 22 144/74 04/09 0545 98.0 93 22 144/74 93 BIPAP 04/09 0445 100 22 130/72 04/09 0445 97.8 100 22 130/72 94 Room Air 04/09 0131 96.3 95 20 140/69 96 Room Air 04/09 0130 96.3 95 20 140/69 04/08 2113 98.8 88 22 135/79 04/08 2113 98.8 88 22 135/79 98 04/08 1919 98.4 100 24 132/82 100 Room Air 04/08 1757 98.1 93 30 Laboratory Tests 04/08/17 1750: Anion Gap 18 H, Estimated GFR > 60, BUN/Creatinine Ratio 8.8, Glucose 111 H, Calcium 9.1, Total Bilirubin 2.5 H, AST 47, ALT 54, Alkaline Phosphatase 120, Total Protein 8.2, Albumin 4.3, Globulin 3.9, Albumin/Globulin Ratio 1.1, Amylase 30, Lipase 58, D-Dimer High Sensitivty 248 H, CBC w Diff NO MAN DIFF REQ, RBC 5.57, MCV 85.9, MCH 28.9, RDW 15.8 H, MPV 8.1, Gran % 56.5, Lymphocytes % 36.2, Monocytes % 5.6, Eosinophils % 1.2, Basophils % 0.5, Absolute Granulocytes 7.1 H, Absolute Lymphocytes 4.5 H, Absolute Monocytes 0.7 H, Absolute Eosinophils 0.1, Absolute Basophils 0.1, PUBS MCHC 33.6, Serum Alcohol 399.0. XRY-LUMBOSACRAL SPINE AP & LAT: Mild degenerative changes VWW-BLIDE-PYTHGN, LEFT: No fracture or dislocation. There are degenerative changes in the knee. US-UNILATERAL VENOUS DOPPLER, LLE: Normal triplex scan without evidence of deep venous thrombosis involving the lower extremity. EKG: Normal sinus rhythm without any acute ST-T wave changes. He was admitted to general medicine floor. 1. Alcohol abuse He was started on CIWA protocol and IV Ativan as needed per CIWA. He was also started on scheduled Ativan that was tapered down daily per CIWA and he was discharged on 2 doses of 1 mg ativan to finish taper. Psych and social work consultations were placed. 2. Severe anxiety and depression Patient refused to see psych. 3. HTN. He was started on clonidine when necessary for blood pressure management. His blood pressure was stable later on. 4. left second toe pain Patient reported that his left foot got twisted while walking. His left foot second toe was hurting. XRY-FOOT COMPLETE, LEFT: Contour irregularity at the proximal articulation of the second digit middle phalanx is likely associated with a fracture of uncertain chronicity, as a fracture line is difficult to visualize. His pain was managed and given podiatry referral upon discharge. Allergies: Coded Allergies: NO KNOWN ALLERGIES (02/02/16) Disposition Summary Disposition Principal Diagnosis: alcohol detox Additional Diagnosis: severe Anxiety Discharge Disposition: home or self care Discharge Instructions General Discharge Information Code Status: Full Code Patient's Diet: regular Patient's Activity: independent Follow-Up Instructions/Appts: 1. Please followup with your primary care after discharge 2. please followup with poditory for left foot 2nd toe fracture Medications at Discharge Discharge Medications: Stop taking the following medications: Lorazepam (Ativan) 0.5 MG TABLET ORAL 2 x Daily as needed as needed for alcohol withdrawal Qty = 1 Continue taking these medications: Multivitamin (Multi-Day Vitamins) 1 EACH TABLET 1 Tablet ORAL Every Morning Comments: Last Taken: 04/11/17 Time: 9:00 AM Fish Oil (Sea-[place] 50 Capsule) 1 EACH CAPSULE 1 Capsule ORAL DAILY Comments: NOT GIVEN IN HOSPITAL C/Sourcherry/Celery/Grape Seed (Tart [place] Capsule) 1 EACH CAPSULE 1 Capsule ORAL DAILY Comments: NOT GIVEN IN HOSPITAL Thiamine HCl (Vitamin B-1) 100 MG TABLET 100 Milligram ORAL DAILY Days = 30 Comments: Last Taken: 04/11/17 Time: 9:00 AM Folic Acid (Folic Acid) 1 MG TABLET 1 Tablet ORAL DAILY Qty = 30 Comments: Last Taken: 04/11/17 Time: 0900 AM Start taking the following new medications: Lorazepam (Lorazepam) 1 MG TABLET 1 Milligram ORAL EVERY 12 HOURS Qty = 2 No Refills Instructions: PLEASE TAKE ONE TAB AT 10 PM TONIGHT AND ONE TAB 10AM TOMORROW. Comments: Last Taken: 04/11/17 Time: 0900 AM Copies To: AUDREY LOGAN,SHYANNE Fisher
--- NOTE | 2017-04-11 08:02 | Patient Discharge Instructions ---
Discharge Instructions General Discharge Information You were seen/treated for: Alcohol abuse Severe anxiety Special Instructions: 1. Please followup with your primary care after discharge 2. please followup with poditory for left foot 2nd toe fracture Diet Recommended Diet: Heart Healthy Activity Full Activity/No Limits: Yes Acute Coronary Syndrome Inclusion Criteria At DC or during hospital stay patient has or had the following: ACS DIAGNOSIS No Discharge Core Measures Meds if any: Prescribed or Continued at Discharge Meds if any: NOT Prescribed or Continued at Discharge Congestive Heart Failure Inclusion Criteria At DC or during hospital stay patient has or had the following: CHF DIAGNOSIS No Discharge Core Measures Meds if any: Prescribed or Continued at Discharge Meds if any: NOT Prescribed or Continued at Discharge Cerebrovascular accident Inclusion Criteria At DC or during hospital stay patient has or had the following: CVA/TIA Diagnosis No Discharge Core Measures Meds if any: Prescribed or Continued at Discharge Meds if any: NOT Prescribed or Continued at Discharge Venous thromboembolism Inclusion Criteria VTE Diagnosis No VTE Type NONE VTE Confirmed by (Test) NONE Discharge Core Measures - Per Current guidelines, there needs to be overlap - treatment for the first 5 days of Warfarin therapy. - If discharged on Warfarin prior to 5 days of - overlap therapy, the patient will need to be - assessed for post discharge needs including - *Post discharge parental anticoagulation - *Warfarin and/or parental anticoagulation education - *Follow up date to check INR post discharge At least 5 days overlap therapy as Inpatient No Meds if any: Prescribed or Continued at Discharge Note: Overlap Therapy is Warfarin and Anticoagulant Meds if any: NOT Prescribed or Continued at Discharge
--- NOTE | 2017-04-11 08:45 | PN- Housestaff ---
See Addendum LUCILLE DUMONT 04/11/17 0838: Subjective Follow-up For: Alcohol abuse Severe anxiety Subjective: This morning patient is alert, awake and oriented. Vitals are stable. Patient wants to go home today. He denies any chest pain or discomfort. Mild pain in left second toe. Review of Systems Constitutional: Reports: see HPI. Objective Last 24 Hrs of Vital Signs/I&O Vital Signs Date Time Temp Pulse Resp B/P B/P Pulse O2 O2 Flow FiO2 Mean Ox Delivery Rate 04/11 0617 97.6 74 18 130/80 94 Room Air 04/11 0600 97.6 74 18 130/80 04/11 0400 97.7 76 22 130/86 04/11 0200 97.7 76 22 130/86 04/11 0152 97.7 76 22 130/86 97 Room Air 04/11 0010 86 98 04/11 0000 98.5 74 20 140/80 04/10 2340 98.5 74 20 140/80 04/10 2222 98.5 74 20 140/80 04/10 2152 98.5 74 20 140/82 96 Room Air 04/10 2136 98.5 78 20 130/76 04/10 2000 98.5 78 20 130/76 04/10 1434 98.5 78 20 130/76 96 Room Air Intake & Output 04/11 1600 04/11 0800 04/11 0000 Intake Total 500 350 Output Total Balance 500 350 Intake, Oral 500 350 Physical Exam General Appearance: Alert, Oriented X3, Cooperative, No Acute Distress Neck: Supple Cardiovascular: Regular Rate Lungs: Clear to Auscultation Abdomen: Normal Bowel Sounds, Soft, No Tenderness Neurological: Normal Speech, Strength at 5/5 X4 Ext, Sensation Intact, Cranial Nerves 3-12 NL Extremities: No Edema, varicose veins bilaterally Current Medications: Current Medications Sig/Vamsi Start time Last Medication Dose Route Stop Time Status Admin Clonidine 0.1 MG TID PRN 04/09 0930 AC PO Enoxaparin Sodium 40 MG DAILY 04/09 1000 AC 04/10 SC 0854 Folic Acid 1 MG DAILY 04/09 1000 AC 04/10 PO 04/11 1001 0854 Ibuprofen 600 MG .STK-MED ONE 04/11 0031 DC PO 04/11 0032 Ibuprofen 600 MG .STK-MED ONE 04/10 1838 DC PO 04/10 1839 Ibuprofen 600 MG Q6P PRN 04/09 0545 AC 04/11 PO 0752 Lorazepam 1 MG Q12 04/11 1000 AC PO Lorazepam 1 MG Q12H 04/11 0000 DC PO 04/11 1201 Lorazepam 1 MG ONCE ONE 04/10 2245 DC 04/10 IV 04/10 2246 2239 Lorazepam 1 MG ONE ONE 04/10 2230 CAN PO 04/10 2231 Lorazepam 1.5 MG Q8 04/10 1400 DC 04/11 PO 0523 Lorazepam 2 MG Q6 04/09 1200 DC 04/10 PO 0548 Lorazepam 2 MG Q2P PRN 04/09 0530 AC 04/09 IV 1017 Lorazepam 1 MG Q2P PRN 04/09 0530 AC 04/10 IV 2140 Multivitamins 1 TAB DAILY 04/09 1000 AC 04/10 PO 0855 Nicotine 14 MG DAILY 04/09 1000 AC TOP Oxycodone/ 1 TAB ONCE ONE 04/10 1415 DC 04/10 Acetaminophen PO 04/10 1416 1509 Thiamine HCl 100 MG DAILY 04/09 1000 AC 04/10 PO 04/11 1001 0854 Assessment/Plan Assessment: Mr. Parekh is 41 year old man with past medical history significant for morbid obesity, alcohol dependence, alcohol related seizure, anxiety and obstructive sleep apnea on CPAP at night. Problem list 1. Alcohol abuse 2. Severe anxiety. Declined psych eval yesterday 3. HTN. stable PLAN * Continue CIWA protocol and Ativan as needed per CIWA. Max score 2-8 * Tapered down scheduled Ativan to 1 mg BID. Finishing taper tomorrow * Continue multivitamins/folic acid/thiamine * Possible discharge home today Problem List: 1. Alcohol dependence with withdrawal 2. Sleep apnea Pain Ratin Pain Location: left 2nd toe Pain Goal: Pain 4 or less Pain Plan: motrin Tomorrow's Labs & Rationales: none DVT/Prophylaxis: pharmacological MYRIAM HOLLAND 04/11/17 1026: Attending MD Review Statement Attending Statement Attending MD Statement: examined this patient, discuss w/resident/PA/FIELD SERVICE TECHNICIAN, agreed w/resident/PA/FIELD SERVICE TECHNICIAN, discussed with family, reviewed EMR data (avail), discussed with nursing, discussed with case mgmt, reviewed images, amended to note Attending Assessment/Plan: 1. Alcohol withdrawal 2. History of alcohol withdrawal delirium Plan - Admit to general medicine - Ativan standing and PRN per CIWA - tolerating PO - Vitamin supplementation - Replace electrolytes - resume home medications at d/c. - Social work consulted referral for IOP at d/c. - Nutrition consult for weight loss plan. Would benefit from bariatric referral on discharge but patient not decided yet. - DVT PPx
[2017-04-11] MEDS ORDERED: LORAZEPAM1 M1 PO ×2 (10:08→10:40)
--- NOTE | 2017-04-12 07:55 | NUR ---
Late Entry: Aware of patients discharge yesterday. I did not see him a second time prior to discharge. I did provide him with information about the IOP, which he received and he also reported to the psychiatric STABLE MANAGER that he had received the information he needed from me previously.
== END 2017-04-11 11:00 | DRG 897 ==
LOC: ERH 16:52 → ERHI 04-09 05:16 → 2NB 04-09 05:16 → ENTRNSPT 04-09 08:30 → EDTRNSPTSTS 04-09 09:04 → CMPTRNSPT 04-09 09:13 → 2NB 04-09 09:20 → ENPENDDIS 04-11 10:51 → 2NB 04-11 11:00
PROVIDERS: Emergency Medicine; ADMIT Internal Medicine
PROC: 5A09357 Assistance with Respiratory Ventilation, Less than 24 Consecutive Hours, Continuous Positive Airway Pressure (ICD-10-PCS; principal; 2017-04-09)
DX: F10.239 Alcohol dependence with withdrawal, unspecified (principal); R56.9 Unspecified convulsions; Z68.43 Body mass index [BMI] 50.0-59.9, adult; E66.01 Morbid (severe) obesity due to excess calories; F41.9 Anxiety disorder, unspecified; G47.33 Obstructive sleep apnea (adult) (pediatric); S92.912A Unspecified fracture of left toe(s), initial encounter for closed fracture; X58.XXXA Exposure to other specified factors, initial encounter; Z72.0 Tobacco use; Y92.9 Unspecified place or not applicable; F32.9 Major depressive disorder, single episode, unspecified; I10 Essential (primary) hypertension
CPT/HCPCS: 2NBP; 72100; 73590-LT; 73630-LT; 82436; 93005; 93010; 96372; G0480; J1200; J1630; J1650; J3490

== ENCOUNTER 2018-02-20 00:31 | Inpatient (IN) | payer OTHER ==
[~2018-02-20] VITALS: Ht 182.9 cm; Wt 190.5 kg
[2018-02-20] VITALS (8 sets, daily range): BP systolic 131–166; BP diastolic 65–90
[~2018-02-20 00:31] MED LIST changes: +LORAZEPAM1 M1 PO
[2018-02-20 01:31] LABS: ABSOLUTE BASOPHIL COUNT 0.1 /CUMM (0.0-0.2); ABSOLUTE EOSINOPHIL COUNT 0.1 /CUMM (0.0-0.7); ABSOLUTE GRANULOCYTE CT 4.5 /CUMM (1.4-6.5); ABSOLUTE LYMPH COUNT 2.2 /CUMM (1.2-3.4); ABSOLUTE MONOCYTE COUNT 0.8 /CUMM (0.10-0.60); BASOPHIL % 1.3 % (0.0-2.0); EOSINOPHIL % 0.8 % (0-5); GRANULOCYTE % 58.3 % (42.2-75.2); HEMATOCRIT 47.8 % (42-52); MEAN CORPUSCULAR HGB 30.5 PG (27.0-31.0); MEAN CORPUSCULAR HGB CONC 34.1 G/DL (33.0-37.0); MEAN CORPUSCULAR VOLUME 89.4 FL (80.0-94.0); MEAN PLATELET VOLUME 7.9 FL (7.4-10.4); PLATELET COUNT 121 /CUMM (130-400); RBC DISTRIBUTION WIDTH 17.9 % (11.5-14.5); RED BLOOD CELL CT 5.34 /CUMM (4.70-6.10); WHITE BLOOD CELL COUNT 7.7 /CUMM (4.8-10.8)
--- NOTE | 2018-02-20 01:48 | ED PSYCHIATRIC COMPLAINT ---
History of Present Illness General Chief Complaint: Psychiatric Related Complaint Stated Complaint: BIBA +SI ON PD PAPER Source: patient, old records, EMS, police Exam Limitations: no limitations Vital Signs & Intake/Output Vital Signs & Intake/Output Vital Signs Date Time Temp Pulse Resp B/P B/P Pulse O2 O2 Flow FiO2 Mean Ox Delivery Rate 02/21 0843 102 151/80 05/ 0645 97.3 102 20 151/80 05/ 0644 97.3 102 20 151/80 93 CPAP / 0445 98.3 86 18 131/65 05/ 0445 98.3 86 20 131/63 94 CPAP / 0259 96 05/ 0245 98.6 102 18 158/72 05/ 0240 98.6 102 18 158/72 96 Room Air 02/20 0110 98.3 / 0053 Room Air / 0045 98.3 103 20 166/74 / 0036 98.3 103 20 166/74 96 Room Air Allergies Coded Allergies: No Known Allergies (02/20/18) Reconcile Medications C/Sourcherry/Celery/Grape Seed (Tart [place] Capsule) 1 EACH CAPSULE 1 CAP PO DAILY SUPPLEMENT (Reported) Fish Oil (Sea-[place] 50 Capsule) 1 EACH CAPSULE 1 CAP PO DAILY SUPPLEMENT ( Reported) Folic Acid 1 MG TABLET 1 TAB PO DAILY alcohol Lorazepam 1 MG TABLET 1 MG PO Q12 ALCOHOL WITHDRAWL PLEASE TAKE ONE TAB AT 10 PM TONIGHT AND ONE TAB 10AM TOMORROW. Multivitamin (Multi-Day Vitamins) 1 EACH TABLET 1 TAB PO QAM SUPPLEMENT ( Reported) Thiamine HCl (Vitamin B-1) 100 MG TABLET 100 MG PO DAILY SUPPLEMENT Triage Note: TRIAGE: BIBA ON PD PAPER W/ +SI, SENT TEXT TO FRIEND STATING "SORRY BOYS LAST TEXT LIGHTS OUT." PATIENT REPORTS HE MISES HIS , BEGAN DRINKING AGAIN RECENTLY HX ETOH W/ W/D SEIZURES. EMS [facility] Triage Nurses Notes Reviewed? yes Onset: Just prior to arrival Duration: hour(s):, constant, continues in ED Timing: recent history Severity: moderate Associated Symptoms: anxiety, impaired concentration, suicidal ideation HPI: Patient was seen at [facility] yesterday. He has been depressed due to divorce and began drinking again. Prior to admission patient patient sent suicidal text to a friend and is here on a PEER. He requests alcohol detox and feels he is currently withdrawing and will have a seizure. Reports his last drink was yesterday and that he has had nausea and vomiting. He also complains of bilateral knee pain without injury. He denies fever chills chest pain cough shortness of breath headache dysuria rash bleeding. (Reinier Brannon MD) Past History Travel History Traveled to [place] past 21 day No Medical History Any Pertinent Medical History? 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 No (Reinier Brannon MD) Review of Systems Review of Systems Constitutional: Reports: no symptoms. EENTM: Reports: no symptoms. Respiratory: Reports: no symptoms. Cardiovascular: Reports: no symptoms. GI: Reports: no symptoms. Genitourinary: Reports: no symptoms. Musculoskeletal: Reports: see HPI, joint pain. Skin: Reports: no symptoms. Neurological/Psychological: Reports: see HPI, emotional problems. Hematologic/Endocrine: Reports: no symptoms. Immunologic/Allergic: Reports: no symptoms. All Other Systems: Reviewed and Negative (Reinier Brannon MD) Physical Exam Physical Exam General Appearance: well developed/nourished, alert, awake, anxious, mild distress, obese Head: atraumatic, normal appearance Eyes: Bilateral: normal appearance, PERRL, EOMI. Ears, Nose, Throat: normal pharynx, normal ENT inspection, hearing grossly normal Neck: normal inspection, supple Respiratory: normal breath sounds Cardiovascular: regular rate/rhythm Gastrointestinal: soft, non-tender Extremities: normal range of motion Neurological/Psychiatric: no motor/sensory deficits, agitated, alert, anxious, delivery driver/customer service II-XII nml as tested, oriented x 3 Appearance/Memory/Insight: disheveled, impaired insight Behavoir/Eye Contact/Speech: cooperative, compulsive, increased rate of speech Thoughts/Hallucinations: no apparent hallucination Skin: intact, normal color, warm/dry SAD PERSONS SAD PERSONS Response Value Male Sex? yes 1 Previous Attempts/Psych Care yes 1 Excessive Ethanol/Drug Use? yes 1 Rational Thinking Loss? yes 2 Single//? yes 1 Social Support? has support 0 Total 6 SAD PERSONS Done? yes (Salud LOGAN,Reinier) Progress Differential Diagnosis: drug intoxication, drug overdose, drug withdrawal, electrolyte abnormality, hypoglycemia Plan of Care: Orders Procedure Date/time Status Regular Diet 02/20 L Active Regular Diet 02/20 B Complete Misc Message 02/21 852 Active ED Holding Orders 02/21 852 Active Admit to inpatient 02/21 852 Active Vital Signs 02/21 852 Active Code Status 02/21 852 Active Pathway - chart 02/20 0851 Active Continuous Observation Monitor 02/20 0440 Active CONTIN. POSITIVE AIRWAY PRESS 02/20 0247 Complete ED CRISIS PSYCH CONSULT 02/20 010 Active CIWA 02/20 0045 Active Continuous Observation Monitor 02/20 0044 Active URINE DRUG SCREEN FOR ER ONLY 02/20 004 Complete ETHANOL 02/20 0044 Complete COMPREHENSIVE METABOLIC PANEL 02/20 004 Complete CBC WITHOUT DIFFERENTIAL 02/20 004 Complete Current Medications Sig/Vamsi Start time Last Medication Dose Stop Time Status Admin Lorazepam 2 MG ONCE ONE 02/20 900 AC (Ativan) 02/20 901 Lorazepam 2 MG Q2P PRN 02/20 900 UNVr (Ativan) Lorazepam 1 MG Q2P PRN 02/20 900 UNVr (Ativan) Clonidine 0.1 MG TID 02/20 010 UNVr 02/20 (Catapres) 0843 Gabapentin 300 MG Q8 02/20 0059 UNVr 02/20 (Neurontin) 0617 Laboratory Tests 02/20/18 0240: Urine Opiates Screen < 100, Methadone Screen < 40, Barbiturate Screen < 60, Ur Phencyclidine Scrn < 6.00, Amphetamines Screen < 100, U Benzodiazepines Scrn < 85, Urine Cocaine Screen < 50, Urine Cannabis Screen < 5.00 02/20/18 0120: Anion Gap 17 H, Estimated GFR > 60, BUN/Creatinine Ratio 8.8, Glucose 121 H, Calcium 8.6, Total Bilirubin 2.2 H, AST 74 H, ALT 84 H, Alkaline Phosphatase 102, Total Protein 7.7, Albumin 4.1, Globulin 3.6, Albumin/Globulin Ratio 1.1, CBC w Diff NO MAN DIFF REQ, RBC 5.34, MCV 89.4, MCH 30.5, MCHC 34.1, RDW 17.9 H , MPV 7.9, Gran % 58.3, Lymphocytes % 29.2, Monocytes % 10.4 H, Eosinophils % 0.8, Basophils % 1.3, Absolute Granulocytes 4.5, Absolute Lymphocytes 2.2, Absolute Monocytes 0.8 H, Absolute Eosinophils 0.1, Absolute Basophils 0.1, Serum Alcohol 391.0 Hand-Off Endorsed To: Brady Quick MD Endorsed Time: 0700 Pending: consult (Crisis), other (CIWA) (Reinier Brannon MD) Comments: 02/20/2018 7:16:37 AM patient signed out to me by Dr. Brannon at shift change manager. 02/20/2018 7:44:43 AM patient's last CIWA score is 15 and he has a documented history of alcohol withdrawal seizures in the medical record. He meets qualifications for inpatient detoxification according to the [facility] emergency medicine alcohol detoxification protocol. Case management paged. (Ynes LOGAN,Brady Moralez) Departure Departure Disposition: STILL A PATIENT Condition: Stable Referrals: Toy Aguilera MD (PCP/Family) Departure Forms: Customer Survey General Discharge Information (Reinier Brannon MD) Departure Clinical Impression Primary Impression: Alcohol intoxication delirium Secondary Impressions: Alcoholic hepatitis Qualifiers: Ascites presence: unspecified Qualified Code: K70.10 - Alcoholic hepatitis without ascites Depression with suicidal ideation Admission Note Spoke With: Tete Eldridge MD Documentation of Exam: Documentation of any treatments & extenuating circumstances including Concerns Regarding Discharge (functional status, medication knowledge or non-compliance, living conditions, etc.) that warrant an admission rather than observation: Continued alcohol consumption places the patient at high risk of pancreatitis, pancreatic failure, liver failure and cirrhosis. In order to avoid this the patient will need to cease drinking alcohol. Patient's alcohol use places pt at high risk of seizures and delirium tremens during cessation. Patient will be at high risk of withdrawal seizures and delirium tremens (both of which can be fatal) for up to 5 days after stopping alcohol. pt will require Ativan to prevent these complications. pt is therefore a very poor candidate for outpatient treatment given the above concerns and treatment needs. In addition the patient's transaminases and total bilirubin level are elevated indicating alcoholic hepatitis. Patient's transaminases should be monitored for improvement with alcohol cessation. The patient transaminases did not normalize than GI consultation to be considered. Pt will require a multiple day hospitalization. (Ynes LOGAN,Brady Moralez) Critical Care Note Critical Care Note Critical Care Time: 30-74 min (Brady Quick MD)
--- NOTE | 2018-02-20 09:01 | History & Physical ---
Devonte Burks 02/20/18 0901: General Information and HPI MD Statement: I have seen and personally examined GABBIE ELLER and documented this H&P. Source of Information: patient Exam Limitations: poor historian History of Present Illness: This is a 42-year-old male with past medical history significant for morbid obesity, alcohol use disorder with multiple admissions for detox, reported alcohol related seizure, obstructive sleep apnea on CPAP at night, previous history of rapid A. fib x 1 not on any AC or rate controlling medications and severe anxiety who presents to the hospital for alcohol detox. Patient is poor historian and does not provide accurate detail for the events. Has sent a text to his friends expressing suicidal ideation. Reports drinking vodka 24hr prior to presentation. Does not specify the amount he drank or how much he usually drinks. Reports being extremely anxious, asking for medication to help him with anxiety, and also a "ciara kina". Denies using any illicit drugs. Denies any SI or HI at the time of interview but admits to sending suicidal text to his friends. Per chart, he has been upset about the divorce and started drinking again. Does not specify how long he remained sober before drinking again. He also reports having left knee pain and back pain at baseline. Denies any new changes or recent trauma. Allergies/Medications Allergies: Coded Allergies: No Known Allergies (02/20/18) Past History Travel History Traveled to [place] past 21 day No Medical History Neurological: WITHDRAWAL SEIZURE EENT: NONE Cardiovascular: AFIB Respiratory: obstructive sleep apnea on CPAP Gastrointestinal: NONE Hepatic: NONE Renal: NONE Musculoskeletal: NONE Psychiatric: REPORTS ONE DETOX SEIZURE AT HOME Endocrine: NONE Blood Disorders: NONE Cancer(s): NONE PERFORMANCE MANAGER/Reproductive: NONE History of MRSA: No History of VRE: No History of CDIFF: No Isolation History: Standard Surgical History Surgical History: appendectomy Past Family/Social History Family History Relations & Conditions if any MOTHER FH: multiple sclerosis Psychosocial History Who Do You Live With? spouse Services at Home: None Primary Language: Grenadian ETOH Use: alcoholic Functional Ability ADLs Independent: dressing, eating, toileting, bathing. Ambulation: independent Review of Systems Review of Systems Constitutional: Denies: chills, diaphoresis, fever, malaise, weakness, unexplained weight loss. EENTM: Denies: blurred vision, double vision, visual changes, eye pain, eye drainage, epistaxis, throat pain. Cardiovascular: Denies: chest pain, edema, orthopena, palpitations, peripheral edema, syncope. Respiratory: Denies: cough, hemoptysis, orthopnea, short of breath, sputum production, stridor, wheezing. GI: Denies: abdominal pain, bloating, constipation, diarrhea, distention, bowel incontinence, melena, nausea, bloody stool, changes in stool, vomiting. Genitourinary: Denies: discharge, dysuria. Musculoskeletal: Reports: back pain, joint pain (left knee/chronic). Denies: muscle pain, muscle stiffness, neck pain. Skin: Denies: change in skin color. Exam & Diagnostic Data Last 24 Hrs of Vital Signs/I&O Vital Signs Date Time Temp Pulse Resp B/P B/P Pulse O2 O2 Flow FiO2 Mean Ox Delivery Rate 02/20 0858 98 Room Air 02/20 0857 100 02/20 0843 102 151/80 02/20 0645 97.3 102 20 151/80 02/20 0644 97.3 102 20 151/80 93 CPAP / 0445 98.3 86 18 131/65 / 0445 98.3 86 20 131/63 94 CPAP 02/20 0259 96 / 0245 98.6 102 18 158/72 02/20 0240 98.6 102 18 158/72 96 Room Air 02/20 0110 98.3 / 0053 Room Air 02/20 0045 98.3 103 20 166/74 02/20 0036 98.3 103 20 166/74 96 Room Air Intake & Output 02/20 1600 02/20 0800 02/20 0000 Intake Total Output Total Balance Patient 425 lb Weight Physical Exam General Appearance Alert, anxious Skin chronic skin darkening on LEs consistent with venous stasis change Skin Temp/Moisture Exam: Warm/Dry Sepsis Skin Exam (color): Normal for Ethnicity HEENT Atraumatic, PERRLA, EOMI, Mucous Membr. moist/pink Neck Supple Lymphatic Cervical nl Cardiovascular Regular Rate, Normal S1, Normal S2, No Murmurs, Gallops, Rubs Lungs Clear to Auscultation, Normal Air Movement Abdomen Normal Bowel Sounds, Soft, No Tenderness, No Hepatospenomegaly, No Masses Neurological Normal Speech, Strength at 5/5 X4 Ext, Normal Tone, Sensation Intact, Cranial Nerves 3-12 NL, Reflexes 2+ Extremities No Clubbing, No Cyanosis, No Edema, Normal Pulses, No Tenderness/ Swelling, See skin exam Vascular Normal Pulses, Pulses Symmetrical Last 24 Hrs of Labs/Adonay: Laboratory Tests 02/20/18 0240: Urine Opiates Screen < 100, Methadone Screen < 40, Barbiturate Screen < 60, Ur Phencyclidine Scrn < 6.00, Amphetamines Screen < 100, U Benzodiazepines Scrn < 85, Urine Cocaine Screen < 50, Urine Cannabis Screen < 5.00 02/20/18 0120: Anion Gap 17 H, Estimated GFR > 60, BUN/Creatinine Ratio 8.8, Glucose 121 H, Calcium 8.6, Total Bilirubin 2.2 H, AST 74 H, ALT 84 H, Alkaline Phosphatase 102, Total Protein 7.7, Albumin 4.1, Globulin 3.6, Albumin/Globulin Ratio 1.1, CBC w Diff NO MAN DIFF REQ, RBC 5.34, MCV 89.4, MCH 30.5, MCHC 34.1, RDW 17.9 H , MPV 7.9, Gran % 58.3, Lymphocytes % 29.2, Monocytes % 10.4 H, Eosinophils % 0.8, Basophils % 1.3, Absolute Granulocytes 4.5, Absolute Lymphocytes 2.2, Absolute Monocytes 0.8 H, Absolute Eosinophils 0.1, Absolute Basophils 0.1, Serum Alcohol 391.0 Assessment/Plan Assessment: This is a 42-year-old male with past medical history significant for morbid obesity, alcohol use disorder with multiple admissions for detox, reported alcohol related seizure, obstructive sleep apnea on CPAP at night, previous history of rapid A. fib x 1 not on any AC or rate controlling medications and severe anxiety who presents to the hospital for alcohol detox. Utox: negative for benzo, cocaine, cannabis Serum alcohol level: 391 Problem list: #Alcohol use disorder presenting for detox #Electrolyte abnormalities #Thrombocytopenia-mild(plt: 120). Plan: * Monitor CIWA * Ativan per CIWA * Scheculed ativan 2 mg q6; taper per CIWA monitoring * IV banana bag * Multivitamin, thiamine, folate, B12 * Repleted K; monitor labs and replete accordingly * Check Mg * Sitter monitor given SI; denies SI at the time of interview * Psych and social consult * Would not address code status at this point, given recent SI ideation and keep the patient full code * DVT PPX at all times * Please confirm home medications Case to be discussed with attending, Dr. Black. Please refer to his addendum for further recs. As Ranked By This Provider Problem List: 1. ETOH abuse Core Measures/Misc (06/30) Acute Coronary Syndrome ACS Diagnosis: No Congestive Heart Failure Congestive Heart Failure Diagnosis No Cerebrovascular Accident CVA/TIA Diagnosis: No VTE (View Protocol) VTE Risk Factors Age>40 No Mechanical VTE Prophylaxis d/t N/A MechProphylax Ordered No VTE Pharm Prophylaxis d/t Platelets below ref range Sepsis (View protocol) Sepsis Present: No Sofia LOGAN,Lita 02/20/18 1349: General Information and HPI Allergies/Medications Home Med list C/Sourcherry/Celery/Grape Seed (Tart [place]inn Capsule) 1 EACH CAPSULE 1 CAP PO DAILY SUPPLEMENT (Reported) Fish Oil (Sea-[place] 50 Capsule) 1 EACH CAPSULE 1 CAP PO DAILY SUPPLEMENT ( Reported) Folic Acid 1 MG TABLET 1 TAB PO DAILY alcohol Lorazepam 1 MG TABLET 1 MG PO Q12 ALCOHOL WITHDRAWL PLEASE TAKE ONE TAB AT 10 PM TONIGHT AND ONE TAB 10AM TOMORROW. Multivitamin (Multi-Day Vitamins) 1 EACH TABLET 1 TAB PO QAM SUPPLEMENT ( Reported) Thiamine HCl (Vitamin B-1) 100 MG TABLET 100 MG PO DAILY SUPPLEMENT Attending MD Review Statement Attending Statement Attending MD Statement: examined this patient, discuss w/resident/PA/ENGINE MANAGER, agreed w/resident/PA/ENGINE MANAGER, reviewed EMR data (avail), discussed with nursing, amended to note Attending Assessment/Plan: 42-year-old male with history of alcohol dependence brought in for evaluation after suicidal ideation via text. He admits to significant alcohol intake. Patient reports that he feels like he is withdrawing and about have a seizure. Was then referred to the inpatient service for further management. He is currently alert and oriented 3. He is agitated. He has an elevated CIWA score. He currently denies any suicidal ideation. Plan: -Admit to inpatient medical service. -IV hydration with lactated Ringer's at 1 25 cc an hour. -Administer Ativan 2 mg orally every [address] patient on Ativan per CIWA score. -Psychiatric consultation due to suicidal ideation. -Supplement potassium orally. -Continue hypertension regimen. -DVT prophylaxis with compression device In view of his thrombocytopenia.
--- NOTE | 2018-02-20 13:48 | Admission Certification ---
Admission Certification Certification Statement - As attending physician, I certify that at the time of - admission, based on clinical presentation, severity of - symptoms, need for further diagnostic testing and - therapeutic interventions, and risk of adverse outcomes - without in-hospital treatment, in my clinical assessment, - this patient requires an acute hospital stay for a minimum - of two nights or longer. I have also considered psychsocial - factors such as support system, advanced age, financial - issues, cognitive issues, and failed out-patient treatments, - past re-admission history, safety of patient, and lack of - compliance as applicable. Specific rationale supporting this admission is: Patient requires hospitalization for management of alcohol withdrawal syndrome.
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
[2018-02-21] VITALS (11 sets, daily range): BP systolic 132–166; BP diastolic 72–94
--- NOTE | 2018-02-21 07:22 | PN- Housestaff ---
[facility] 02[facility]21[facility]18 0722: Subjective Follow-up For: Alcohol withdrawal Hypokalemia and hypomagnesemia Mild hyponatremia Subjective: No overnight events. Patient remained afebrile,. Seen and examined this morning. He denied any chest pain, short of breath, nausea, vomiting, chills, fever, abdominal pain dysuria. His CIWA scores remained low. Patient reported having bilateral ankle pain 8/10, probably due to his gout. Patient also reported having back pain that's under control with pain medication. Review of Systems Constitutional: Denies: chills, fever. EENTM: Reports: no symptoms. Cardiovascular: Denies: chest pain, palpitations, syncope. Respiratory: Denies: cough, short of breath, sputum production. Gastrointestinal: Denies: abdominal pain, diarrhea, nausea, vomiting. Genitourinary: Reports: no symptoms. Musculoskeletal: Reports: back pain, joint pain. Neurological/Psychological: Reports: no symptoms. Objective Last 24 Hrs of Vital Signs/I&O Vital Signs Date Time Temp Pulse Resp B/P B/P Pulse O2 O2 Flow FiO2 Mean Ox Delivery Rate 02/21 0620 98.4 85 20 166/94 97 Room Air 02/21 0600 98.4 85 20 166/94 02/21 0200 98.8 80 20 156/88 02/21 0148 98.8 80 20 156/88 96 CPAP 02/20 2244 80 96 02/20 2151 99.0 74 20 152/90 98 Room Air 02/20 1800 98.7 84 20 142/90 96 Room Air 02/20 1450 85 20 140/80 96 05/ 1357 80 95 05/ 1147 98.6 81 20 144/80 95 Room Air 02/20 1020 98.0 86 24 148/80 99 Room Air 02/20 0933 98.1 86 20 143/77 97 Room Air 02/20 0858 98 Room Air 02/20 0857 100 Intake & Output 02/21 1600 02/21 0800 02/21 0000 Intake Total 610 1280 Output Total Balance 610 1280 Intake, IV 10 1000 Intake, Oral 600 280 Physical Exam General Appearance: Alert, Oriented X3, Cooperative Skin: No Rashes Skin Temp/Moisture Exam: Warm/Dry Sepsis Skin Exam (color): Normal for Ethnicity HEENT: Atraumatic, PERRLA, EOMI Neck: Supple Cardiovascular: Normal S1, Normal S2 Lungs: Clear to Auscultation Abdomen: Soft, No Tenderness Neurological: Normal Speech, Strength at 5/5 X4 Ext, Normal Tone Extremities: No Edema, B/L chronic venous changes Assessment/Plan Assessment: 42-year-old male with past medical history significant for morbid obesity, alcohol use disorder with multiple admissions for detox, reported alcohol related seizure, obstructive sleep apnea on CPAP at night, previous history of rapid A. fib x 1 not on any AC or rate controlling medications and severe anxiety who presents to the hospital for alcohol detox. We are following the patient for following problems: Alcohol withdrawal: -Continue CIWA protocol -Continue Ativan 2 mg every 4 hourly. His CIWA remained low. -Continue thiamine, vitamin B12, folic acid supplementation. -Zofran for nausea as needed -Seizure precaution as patient having history of seizures in the past. Hypomagnesemia and hypokalemia: -Probably due to alcohol use -Continue monitoring his magnesium and potassium level -Today his potassium was 3.2 and magnesium was 1.4 -Continue repeating his potassium and magnesium. Acute episode of Gout: -Patient has history of gout and he was taking indomethacin in the past. -He is complaining of bilateral ankle pain -We will start colchicine 1.2 mg one dose and 0.6 mg after one hour for acute episode -We will give him colchicine 0.6 mg twice a day Back pain: -Patient having history of sciatica -Follow pain pathway Thrombocytopenia: -Probably due to alcohol use. -We will monitor his platelet count -Avoid any medication that can decrease the function or number of platelets. -No heparin -Today his platelet count is 74 Hyperbilirubinemia: -Patient's bilirubin level was high on admission, total bilirubin 2.2 -Today his total bilirubin level 3.6, his indirect bilirubin is 3.2 -Peripheral smear, heptoglobin level, LDH to rule out hemolytic anemia. -Considering patient's history of alcoholism needs to rule out hypersplenism that can cause red blood cell destruction and leads to indirect hyperbilirubinemia. Mild Hyponatremia: -Possibly euvolemic hyponatremia. Could be caused by increased secretion of ADH due to his pain or possible primary polydipsia but patient is not feeling thirsty. -Could be due to alcoholism. we will check urine and serum osmolality with lytes. -Possibly if we can control his pain better his sodium level will improve. -Patient is asymptomatic and we will continue monitoring his sodium level. DVT prophylaxis: Mechanical only considering his thrombocytopenia CODE STATUS: Full code Problem List: 1. Hyponatremia 2. Alcohol withdrawal 3. Hypokalemia 4. Hypomagnesemia Pain Ratin Pain Location: ankles and back Pain Goal: Pain 4 or less Pain Plan: pain pathway Tomorrow's Labs & Rationales: cbc/bep/LFTs Sofia LOGANNolanany 02/21/18 1110: Attending MD Review Statement Attending Statement Attending MD Statement: examined this patient, discuss w/resident/PA/WATER VALVE REPAIRER, agreed w/resident/PA/WATER VALVE REPAIRER, reviewed EMR data (avail), discussed with nursing, discussed with case mgmt, amended to note Attending Assessment/Plan: Patient seen and examined. Lying comfortably in bed. No acute distress. No issues overnight reported by nursing staff. CIWA score was as high as 50 yesterday. He did require 3 mg of IV Ativan since admission to the medical floor yesterday. She had obvious cause appears to be better this morning. He is complaining this morning of bilateral foot pain. Reports her pain is predominantly in the ankles. Reports the pain is similar to episodes of gout attack he has had in the past. He reports using indomethacin in the past. On examination he is not agitated or tremulous. He has nonpitting edema bilateral lower extremities. Ankles appear swollen however feels more like fatty tissue than fluid collection. There is no erythema. There is no open area. He has normal range of motion. Recommendations: -Okay to discontinue IV hydration. Encourage oral intake. -Supplement potassium orally with 40 mEq every 8 hours 3 doses. Repeat serum chemistry in a.m. -The drop in hemoglobin level is likely secondary to hemoconcentration on admission. Repeat CBCs in a.m. If hemoglobin levels continue to drop we will consider obtaining stool guaiac. -Keep Ativan at current dose. If patient continues to improve with decrease Ativan to 1.5 mg orally every 4 hours tomorrow morning. -Psychiatry consultation appreciated. Recommendations noted.
[2018-02-21] MEDS ORDERED: LISINOPRIL10 M1 PO (08:32)
[2018-02-21 08:53] LABS: ABSOLUTE BASOPHIL COUNT 0 /CUMM (0.0-0.2); ABSOLUTE EOSINOPHIL COUNT 0.2 /CUMM (0.0-0.7); ABSOLUTE GRANULOCYTE CT 3.3 /CUMM (1.4-6.5); ABSOLUTE LYMPH COUNT 1.4 /CUMM (1.2-3.4); ABSOLUTE MONOCYTE COUNT 0.6 /CUMM (0.10-0.60); BASOPHIL % 0.2 % (0.0-2.0); RED BLOOD CELL CT 4.44 /CUMM (4.70-6.10)
[2018-02-21 09:06] LABS: EOSINOPHIL % 3.5 % (0-5); GRANULOCYTE % 59.9 % (42.2-75.2); MEAN CORPUSCULAR HGB 30.3 PG (27.0-31.0); MEAN CORPUSCULAR HGB CONC 33.4 G/DL (33.0-37.0); MEAN CORPUSCULAR VOLUME 90.5 FL (80.0-94.0); MEAN PLATELET VOLUME 8.8 FL (7.4-10.4); PLATELET COUNT 74 /CUMM (130-400); RBC DISTRIBUTION WIDTH 18.3 % (11.5-14.5); WHITE BLOOD CELL COUNT 5.5 /CUMM (4.8-10.8)
[2018-02-21 09:09] LABS: HEMATOCRIT 40.2 % (42-52)
--- NOTE | 2018-02-21 19:32 | ULTRASOUND REPORT ---
EXAMINATION: ABDOMINAL ULTRASOUND LIMITED CLINICAL INFORMATION: Alcohol abuse. Enlarged spleen. Elevated bilirubin. COMPARISON: None. TECHNIQUE: Real-time imaging of the right upper quadrant abdominal viscera. FINDINGS: PANCREAS: The visualized pancreatic head and body are normal in appearance. The remainder of the pancreas is obscured from visualization by the overlying bowel gas. LIVER: The liver is of normal size and diffuse increased echogenicity without focal lesions nor intrahepatic biliary ductal dilation. GALLBLADDER: There are calculi within the gallbladder lumen. There is no wall thickening or pericholecystic fluid. COMMON BILE DUCT: Normal in caliber measuring 0.4 cm in diameter. RIGHT KIDNEY: Normal. No hydronephrosis. No renal calculi or focal parenchymal lesions. The kidney measures 14.9 cm in maximum dimension. FREE FLUID: None. IMPRESSION: Liver of diffuse increased echogenicity without focal lesions. The appearance is nonspecific, but consistent with fatty infiltration. Cholelithiasis without evidence of cholecystitis.
[2018-02-22 02:00] VITALS: BP 140/74
[2018-02-22 06:00] VITALS: BP 138/86
[2018-02-22 06:20] VITALS: BP 138/86
[2018-02-22 08:00] VITALS: BP 138/86
--- NOTE | 2018-02-22 08:16 | PN- Housestaff ---
Nicole LOGAN,Preethi 02/22/18 0816: Subjective Follow-up For: Alcohol withdrawal Lower extremity pain most likely secondary to gout Complaints: pain scale (0-10) Subjective: Patient is seen and examined. Notes severe pain in the lower extremities mostly concentrated around the ankles. He states that he believes this pain is associated with his gout. The pain makes it difficult to even stand long enough to use the bathroom. He denies any other pain. He denies any anxiety, feelings of depression, chest pain, short of breath, nausea, vomiting, chills, fever, abdominal pain, dysuria. His CIWA scores remained low. Review of Systems Constitutional: Reports: no symptoms. EENTM: Reports: no symptoms. Cardiovascular: Reports: no symptoms. Respiratory: Reports: no symptoms. Gastrointestinal: Reports: no symptoms. Genitourinary: Reports: no symptoms. Musculoskeletal: Reports: joint pain. Skin: Reports: no symptoms. Neurological/Psychological: Reports: no symptoms. Hematologic/Endocrine: Reports: no symptoms. Objective Last 24 Hrs of Vital Signs/I&O Vital Signs Date Time Temp Pulse Resp B/P B/P Pulse O2 O2 Flow FiO2 Mean Ox Delivery Rate 02/22 1057 98.4 81 20 138/86 02/22 0620 98.4 81 20 138/86 97 Room Air 02/22 0600 98.4 81 20 138/86 02/22 0200 98.4 80 20 140/74 02/21 2200 98.7 89 20 142/72 02/21 2151 98.7 89 20 142/72 98 Room Air 02/21 2138 89 142/72 02/21 1600 96 Room Air 02/21 1430 97.9 98 20 132/78 98 Room Air 02/21 1400 97.9 98 18 132/78 02/21 1355 98 132/78 Intake & Output 02/22 1600 02/22 0800 02/22 0000 Intake Total 610 610 Output Total Balance 610 610 Intake, IV 10 10 Intake, Oral 600 600 Physical Exam General Appearance: Alert, Oriented X3, Cooperative, Mild Distress Skin: No Rashes, No Breakdown, lower extremity chronic venous stasis changes and edema of the ankles/adipose. Tortuous lower extremity veins. Moderate to severe pain on palpation. Skin Temp/Moisture Exam: Warm/Dry Sepsis Skin Exam (color): Normal for Ethnicity HEENT: Atraumatic, PERRLA, EOMI, Mucous Membr. moist/pink Neck: Supple, No JVD Cardiovascular: Regular Rate, Normal S1, Normal S2, No Murmurs Lungs: Clear to Auscultation, Normal Air Movement Abdomen: Normal Bowel Sounds, Soft, No Tenderness Neurological: Normal Speech Extremities: No Clubbing, No Cyanosis, see skin exam Vascular: Normal Pulses Current Medications: Current Medications Sig/Vamsi Start time Last Medication Dose Route Stop Time Status Admin Clonidine 0.1 MG TID 02/20 0100 AC 02/22 PO 1057 Colchicine 600 MCG BID 02/22 09 AC 02/22 PO 0635 Cyanocobalamin 1,000 MCG DAILY 02/21 09 AC 02/22 PO 1052 Folic Acid 1 MG DAILY 02/21 09 AC 02/22 PO 1052 Gabapentin 300 MG Q8 02/20 0059 AC 02/22 PO 0602 Lorazepam 1.5 MG EVERY 4 HRS/AWAKE 02/22 0800 AC 02/22 PO 1051 Lorazepam 2 MG Q4 02/20 1400 DC 02/22 PO 0601 Lorazepam 0 Q1P PRN 02/20 0915 AC 02/21 IV 1645 Magnesium Oxide 400 MG ONE ONE 02/21 1500 DC 02/21 PO 02/21 1501 1449 Multivitamins 1 TAB DAILY 02/21 0900 AC 02/22 PO 1052 Potassium Chloride 20 MEQ DAILY 02/20 1057 AC 02/22 PO 1052 Thiamine HCl 100 MG DAILY 02/20 0913 AC 02/22 PO 1052 Tramadol HCl 50 MG Q4 PRN 02/22 1200 UNVr PO Tramadol HCl 50 MG Q6P PRN 02/20 1215 AC 02/22 PO 1203 Last 24 Hrs of Lab/Adonay Results Last 24 Hrs of Labs/Mics: Laboratory Tests 02/22/18 0745: Anion Gap 10, Estimated GFR > 60, BUN/Creatinine Ratio 16.7, Magnesium 1.6, Total Bilirubin 3.4 H, Direct Bilirubin 0.2, AST 37, ALT 62, Alkaline Phosphatase 84, Total Protein 6.5, Albumin 3.4 L, CBC w Diff NO MAN DIFF REQ, RBC 4.55 L, MCV 90.7, MCH 30.3, MCHC 33.4, RDW 17.8 H, MPV 9.3, Gran % 63.4, Lymphocytes % 21.4, Monocytes % 11.7 H, Eosinophils % 3.3, Basophils % 0.2, Absolute Granulocytes 4.5, Absolute Lymphocytes 1.5, Absolute Monocytes 0.8 H, Absolute Eosinophils 0.2, Absolute Basophils 0 Orders CIWA Score (last 24 hrs): 2 Assessment/Plan Assessment: 42-year-old male with past medical history significant for morbid obesity, alcohol use disorder with multiple admissions for detox, reported alcohol related seizure, obstructive sleep apnea on CPAP at night, previous history of rapid A. fib x 1 not on any AC or rate controlling medications and severe anxiety who presents to the hospital for alcohol detox. We are following the patient for following problems: Alcohol withdrawal: -Continue CIWA protocol -Transition to Ativan 1.5 mg every 4 hourly. His CIWA remained low at 2 overnight. -Continue thiamine, vitamin B12, folic acid supplementation. -Zofran for nausea as needed -Seizure precaution as patient has a history of seizures in the past. Hypomagnesemia and hypokalemia: -Secondary to alcohol use -Continue monitoring his magnesium and potassium level -Today his potassium was 3.8 and magnesium was 1.6 -Continue repleting his potassium to be at 4 and magnesium to be at 2 in this patient with alcoholism. Acute episode of Gout: -Patient has history of gout and he was taking indomethacin in the past. -He is complaining of bilateral ankle pain -Patient is on colchicine 0.6 mg twice a day, started on February 21. He states that when he is on indomethacin, the pain is less. We will continue the patient on culture seen and start him on Ultram 50 mg every 4 when necessary for the pain and will consider starting his indomethacin if this does not help. Of note the patient's creatinine is normal to low. Back pain: -Patient having history of sciatica -Follow pain pathway, currently his back pain is minimal especially compared to his lower extremity pain Thrombocytopenia: -Probably due to alcohol use. -We will monitor his platelet count -Avoid any medication that can decrease the function or number of platelets. -No heparin -Today his platelet count is 75 Hyperbilirubinemia: -Patient's bilirubin level was high on admission, total bilirubin 2.2 -Today his total bilirubin level 3.4, indirect is 3.2 -Peripheral smear, heptoglobin level pending, LDH is normal -Considering patient's history of alcoholism needs to rule out hypersplenism that can cause red blood cell destruction and leads to indirect hyperbilirubinemia. Unfortunately only limited abdominal ultrasound was done and spleen was not imaged. We were able to see that patient has fatty liver changes which we expected. We will keep the patient nothing by mouth after midnight tonight and do full abdominal ultrasound with instructions to focus on the spleen tomorrow. We will start D5 normal saline 1 bag at midnight. Mild Hyponatremia: 136 today -Possibly euvolemic hyponatremia. Could be caused by increased secretion of ADH due to his pain or possible primary polydipsia but patient is not feeling thirsty. -Could be due to alcoholism. we will check urine and serum osmolality with lytes which show low urine osmolality and a low urine random sodium which show that the patient is quite well hydrated. Patient's fractional sodium excretion is normal which means that his kidneys are able to move a salt load. DVT prophylaxis: Mechanical only considering his thrombocytopenia CODE STATUS: Full code Problem List: 1. Status post alcohol detoxification 2. Alcohol withdrawal 3. Alcoholic hepatitis 4. Morbid obesity 5. Gout Pain Ratin Pain Location: lower extremities Pain Goal: Pain 4 or less Pain Plan: tramadol 50 q4 prn Tomorrow's Labs & Rationales: cbc bep lft Lita Black MD 02/22/18 0944: Attending MD Review Statement Attending Statement Attending MD Statement: examined this patient, discuss w/resident/PA/PIN DRAFTING MACHINE OPERATOR, agreed w/resident/PA/PIN DRAFTING MACHINE OPERATOR, reviewed EMR data (avail), discussed with nursing, discussed with case mgmt, amended to note Attending Assessment/Plan: Patient seen and examined. Resting comfortably unless in any acute distress. No issues overnight reported by nursing staff. CIWA score is improving. He received only 1 dose of as needed Ativan overnight. He is not agitated or tremulous. He however is anxious to go home over the weekend. He complains of continued pain bilateral lower extremities. On examination there is no erythema or pitting edema. He reports her symptoms are consistent with gout flareup. Plan: -Ativan has been weaned down to 1.5 mg every 4 hours today. We will wean down to 1 mg 3 times a day tomorrow if he continues to do well. -Continue colchicine for his gout flareup. -Patient encouraged to mobilize as tolerated. -Hemoglobin level is stable. He is thrombocytopenic however platelet count appears to have stabilized. No bleeding noted. Continue DVT prophylaxis with compression devices. -We will need to be a bed. This has been discussed with nursing staff. -Outpatient referral to the bariatric care service upon discharge. -Repeat chemistry and CBC in a.m. if there is a change in his clinical condition.
[2018-02-22 09:00] LABS: ABSOLUTE BASOPHIL COUNT 0 /CUMM (0.0-0.2); ABSOLUTE EOSINOPHIL COUNT 0.2 /CUMM (0.0-0.7); ABSOLUTE GRANULOCYTE CT 4.5 /CUMM (1.4-6.5); ABSOLUTE LYMPH COUNT 1.5 /CUMM (1.2-3.4); ABSOLUTE MONOCYTE COUNT 0.8 /CUMM (0.10-0.60); BASOPHIL % 0.2 % (0.0-2.0); EOSINOPHIL % 3.3 % (0-5); GRANULOCYTE % 63.4 % (42.2-75.2); HEMATOCRIT 41.2 % (42-52); MEAN CORPUSCULAR HGB 30.3 PG (27.0-31.0); MEAN CORPUSCULAR HGB CONC 33.4 G/DL (33.0-37.0); MEAN CORPUSCULAR VOLUME 90.7 FL (80.0-94.0); MEAN PLATELET VOLUME 9.3 FL (7.4-10.4); PLATELET COUNT 75 /CUMM (130-400); RBC DISTRIBUTION WIDTH 17.8 % (11.5-14.5); RED BLOOD CELL CT 4.55 /CUMM (4.70-6.10); WHITE BLOOD CELL COUNT 7.2 /CUMM (4.8-10.8)
[2018-02-22 22:00] VITALS: BP 120/60
[2018-02-22 22:03] VITALS: BP 120/60
[2018-02-23 02:00] VITALS: BP 130/80
[2018-02-23 06:00] VITALS: BP 122/82
--- NOTE | 2018-02-23 06:37 | PN- Housestaff ---
[facility] Subjective Follow-up For: Alcohol withdrawal Acute flare of gout Subjective: No overnight events. Patient remained afebrile overnight. Seen and examined this morning. He denied any chest pain, short of breath, nausea, vomiting, chills, fever, abdominal pain dysuria. Patient reported having bilateral ankle pain and also pain in right thumb. Patient is nothing by mouth and going for abdominal ultrasound. Review of Systems Constitutional: Denies: chills, fever, malaise. EENTM: Reports: no symptoms. Cardiovascular: Denies: chest pain, orthopena, palpitations. Respiratory: Denies: cough, short of breath, sputum production. Gastrointestinal: Denies: abdominal pain, bloating, melena, nausea, vomiting. Genitourinary: Reports: no symptoms. Musculoskeletal: Reports: see HPI. Neurological/Psychological: Reports: no symptoms. Objective Last 24 Hrs of Vital Signs/I&O Vital Signs Date Time Temp Pulse Resp B/P B/P Pulse O2 O2 Flow FiO2 Mean Ox Delivery Rate 02/23 0648 97.8 82 20 122/82 99 02/23 0600 97.8 82 20 122/82 02/23 0200 98.0 99 20 130/80 02/22 2244 72 98 02/22 2203 99.1 95 20 120/60 98 Room Air 02/22 2200 99.1 93 20 120/60 02/22 1600 92 Nasal 3.0L Cannula 02/22 1415 98.4 81 20 138/86 02/22 1057 98.4 81 20 138/86 Intake & Output 02/23 1600 02/23 0800 02/23 0000 Intake Total 720 610 Output Total Balance 720 610 Intake, IV 600 10 Intake, Oral 120 600 Physical Exam General Appearance: Alert, Oriented X3, Cooperative Skin: No Rashes Skin Temp/Moisture Exam: Warm/Dry Sepsis Skin Exam (color): Normal for Ethnicity HEENT: Atraumatic, PERRLA, EOMI Neck: Supple Cardiovascular: Normal S1, Normal S2 Lungs: Clear to Auscultation Abdomen: Soft, No Tenderness Neurological: Normal Speech, Strength at 5/5 X4 Ext, Normal Tone Extremities: b/l chronic venous changes with grade 1 pedal edema Assessment/Plan Assessment: 42-year-old male with past medical history significant for morbid obesity, alcohol use disorder with multiple admissions for detox, reported alcohol related seizure, obstructive sleep apnea on CPAP at night, previous history of rapid A. fib x 1 not on any AC or rate controlling medications and severe anxiety who presents to the hospital for alcohol detox. We are following the patient for following problems: Alcohol withdrawal: -Continue CIWA protocol -Right now patient is taking 1.5 mg every 4 hourly we will trended to 1 mg 3 times a day today. His CIWA was 9 last night and 1 this morning. -Continue thiamine, vitamin B12, folic acid supplementation. -Zofran for nausea as needed -Seizure precaution as patient has a history of seizures in the past. Hypomagnesemia and hypokalemia:(improving) -Secondary to alcohol use -Continue monitoring his magnesium and potassium level -Continue repleting his potassium to be at 4 and magnesium to be at 2 in this patient with alcoholism. Acute episode of Gout: -Patient has history of gout and he was taking indomethacin in the past. -He is complaining of bilateral ankle pain -Patient is on colchicine 0.6 mg twice a day, started on February 21. He states that when he is on indomethacin, the pain is less. -Continue Ultram 50 mg every 4 when necessary for the pain and will consider starting his indomethacin if this does not help. Right thumb pain: -Patient is complaining of right thumb pain at carpometacarpal joint. patient has history of fracture in the past. Possible osteoarthritis. -No abnormal skin findings, no joint deformity the patient complaining of pain while abduction and palpation. No signs of inflammation or infection. -Pain management according the pain pathway Back pain: -Patient having history of sciatica -Follow pain pathway. -Continue gabapentin Thrombocytopenia: -Probably due to alcohol use. -We will monitor his platelet count -Avoid any medication that can decrease the function or number of platelets. -No heparin Hyperbilirubinemia: -Patient's bilirubin level was high on admission, total bilirubin 2.2 -Yesterday his total bilirubin was 3.2. -His haptoglobin is pending but LDH is normal. -Possibly due to fatty liver or alcohol induced. Initially his ALT and AST was elevated that were trended. -Patient is nothing by mouth and going for full abdominal ultrasound. We will follow ultrasound results. Mild Hyponatremia: (improved) -His hyponatremia has been improved possibly hypovolemic hyponatremia due to alcoholism. -Patient remained asymptomatic and his sodium level was 136 yesterday. -We will monitor his sodium level DVT prophylaxis: Mechanical only considering his thrombocytopenia CODE STATUS: Full code Problem List: 1. Gout 2. Alcohol withdrawal Pain Ratin Pain Location: b/l ankles Pain Goal: Remain pain free Pain Plan: pain pathway Tomorrow's Labs & Rationales: stacey Black MD,Lita 02/23/18 1016: Attending MD Review Statement Attending Statement Attending MD Statement: examined this patient, discuss w/resident/PA/TOBACCO WRAPPING MACHINE TENDER, agreed w/resident/PA/TOBACCO WRAPPING MACHINE TENDER, reviewed EMR data (avail), discussed with nursing, discussed with case mgmt, amended to note Attending Assessment/Plan: Patient seen and examined. No issues overnight reported by nursing staff. CIWA score is improving. Received only 1 dose of as needed Ativan in the early hours of this morning. Continues to complain of bilateral ankle pain. He is refusing ALPS for DVT prophylaxis despite counseling on the need. On examination he is on agitated. Is not tremulous. He has bilateral ankle swelling. He has no calf tenderness. No erythema of the lower extremities. He does have some chronic hyperpigmentation changes. Recommendations: -Taper down his Ativan therapy today. Discontinue CIWA coverage. -Continue current pain regimen. Due to continued complaint of pain recommend x- rays of the both ankles. Check d-dimer level. If elevated obtain Dopplers of lower extremities. -Mobilize patient as tolerated. -Social work evaluation in the a.m.
[2018-02-23 06:48] VITALS: BP 122/82
[2018-02-23 10:29] LABS: ABSOLUTE BASOPHIL COUNT 0 /CUMM (0.0-0.2); ABSOLUTE EOSINOPHIL COUNT 0.4 /CUMM (0.0-0.7); ABSOLUTE GRANULOCYTE CT 4.9 /CUMM (1.4-6.5); ABSOLUTE MONOCYTE COUNT 1.1 /CUMM (0.10-0.60); BASOPHIL % 0.5 % (0.0-2.0); EOSINOPHIL % 4.4 % (0-5); GRANULOCYTE % 58.2 % (42.2-75.2); HEMATOCRIT 40.8 % (42-52); MEAN CORPUSCULAR HGB 30.3 PG (27.0-31.0); MEAN CORPUSCULAR HGB CONC 32.8 G/DL (33.0-37.0); MEAN CORPUSCULAR VOLUME 92.3 FL (80.0-94.0); MEAN PLATELET VOLUME 9.6 FL (7.4-10.4); PLATELET COUNT 96 /CUMM (130-400); RBC DISTRIBUTION WIDTH 18.4 % (11.5-14.5); RED BLOOD CELL CT 4.43 /CUMM (4.70-6.10); WHITE BLOOD CELL COUNT 8.4 /CUMM (4.8-10.8)
--- NOTE | 2018-02-23 11:21 | RADIOLOGY REPORT ---
EXAMINATION: XR ANKLE, LEFT XR ANKLE, RIGHT CLINICAL INFORMATION: Bilateral ankle pain COMPARISON: None TECHNIQUE: Left ankle, AP and lateral views Right ankle, AP and lateral views FINDINGS: Right ankle: Obese body habitus. Diffuse reticular opacity from edema in subcutaneous tissues. Smooth periosteal reaction along the distal metadiaphysis of the tibia and fibula -- a finding that can be seen in the setting of chronic venous insufficiency. No suspicious lytic or blastic bone lesion. The talar dome is well-positioned within the intact ankle mortise. Mild osseous spurring observed at the tips of the medial and lateral malleoli. The ankle joint space and syndesmotic space are maintained. Mild osteophyte formation observed at dorsal aspect of midfoot and Lisfranc joint. Small posterior calcaneal enthesophyte. Left ankle: Findings on the left are similar to those observed on the right. Diffuse edema of subcutaneous tissues of the examined extremity. Smooth periosteal reaction along the distal metadiaphysis of the tibia and fibula. The talar dome is well-positioned within the intact ankle mortise. Ankle joint space and syndesmotic space are maintained. No acute fracture or malalignment. Small dorsal osteophytes observed at the midfoot and Lisfranc joint. Small calcaneal enthesophytes. IMPRESSION: 1. No acute osseous injury at either ankle. No fracture or malalignment. 2. Obesity and diffuse, nonspecific edema of subcutaneous tissues, possibly due to venous insufficiency or fluid overload. 3. The smooth periosteal reaction along the distal diaphysis of the tibia and fibula, bilaterally, could be an osseous manifestation of chronic venous insufficiency of the extremity.
--- NOTE | 2018-02-23 11:28 | RADIOLOGY REPORT ---
EXAMINATION: XR WRIST, RIGHT CLINICAL INFORMATION: Pain of right wrist and first carpometacarpal joint. COMPARISON: None TECHNIQUE: Two views of the right wrist. FINDINGS: Obese body habitus. Bones have normal alignment. There is a well-defined, 0.6 cm cystic lucency of the ulnar styloid process. Also, there appears to be a small cyst in the anterior aspect of the triquetrum. No suspicious bone lesions. The radiocarpal, midcarpal and carpometacarpal joint spaces are maintained. No periarticular osteopenia, osseous erosion or periostitis. No chondrocalcinosis. No fracture or subluxation. The first carpometacarpal joint is unremarkable. IMPRESSION: 1. No acute fracture or malalignment within the distal forearm or wrist. 2. The first carpometacarpal joint is normal.
[2018-02-23 14:47] VITALS: BP 128/85
[2018-02-23 22:00] VITALS: BP 138/70
[2018-02-23 22:51] VITALS: BP 138/70
[2018-02-24 06:00] VITALS: BP 136/78
[2018-02-24 06:18] VITALS: BP 136/78
--- NOTE | 2018-02-24 07:07 | PN- Housestaff ---
[facility] Subjective Follow-up For: Alcohol withdrawal Acute flare of gout Possible tenosynovitis of right wrist Right leg superficial thrombophlebitis Subjective: No overnight events patient remained afebrile. Seen and examined this morning. He denied any chest pain, palpitation, nausea, vomiting, chills, fever, abdominal pain and dysuria. Patient reported having bilateral ankle pain 9/10 and also having pain in right wrist. Patient wants to go home today. Review of Systems Constitutional: Denies: chills, fever. EENTM: Reports: no symptoms. Cardiovascular: Denies: chest pain, orthopena, palpitations. Respiratory: Denies: cough, short of breath, sputum production. Gastrointestinal: Denies: abdominal pain, constipation, diarrhea, melena, vomiting. Genitourinary: Reports: no symptoms. Musculoskeletal: Reports: see HPI. Neurological/Psychological: Reports: no symptoms. Objective Last 24 Hrs of Vital Signs/I&O Vital Signs Date Time Temp Pulse Resp B/P B/P Pulse O2 O2 Flow FiO2 Mean Ox Delivery Rate 02/24 0852 98.4 76 20 136/78 02/24 0618 98.4 76 20 136/78 96 Room Air 02/24 0600 98.4 74 20 136/78 02/23 2251 98.7 84 22 138/70 97 Room Air 02/23 2200 98.7 84 22 138/70 02/23 1447 97.5 80 20 128/85 98 Room Air 02/23 1347 97.8 82 20 122/82 Intake & Output 02/24 1600 02/24 0800 02/24 0000 Intake Total 490 610 Output Total Balance 490 610 Intake, IV 10 10 Intake, Oral 480 600 Physical Exam General Appearance: Alert, Oriented X3, Cooperative Skin Temp/Moisture Exam: Warm/Dry Sepsis Skin Exam (color): Normal for Ethnicity HEENT: Atraumatic, PERRLA, EOMI Neck: Supple Cardiovascular: Normal S1, Normal S2 Lungs: Clear to Auscultation Abdomen: Soft, No Tenderness Neurological: Normal Speech, Strength at 5/5 X4 Ext, Normal Tone Extremities: B/L VERICOSE VEIN AND CHRONIC VENOUS CHANGES, B/L LEG SWELLING Assessment/Plan Assessment: 42-year-old male with past medical history significant for morbid obesity, alcohol use disorder with multiple admissions for detox, reported alcohol related seizure, obstructive sleep apnea on CPAP at night, previous history of rapid A. fib x 1 not on any AC or rate controlling medications and severe anxiety who presents to the hospital for alcohol detox. We are following the patient for following problems: Alcohol withdrawal: -Continue CIWA protocol -Right now patient is taking 0.5 mg TID and tomorrow we will keep him on 0.5 mg twice a day. His CIWA MAX was 8 last night and 2 this morning. -Continue thiamine, vitamin B12, folic acid supplementation. -Zofran for nausea as needed -Seizure precaution as patient has a history of seizures in the past. Hypomagnesemia and hypokalemia:(improving) -Secondary to alcohol use -Continue monitoring his magnesium and potassium level -Continue repleting his potassium to be at 4 and magnesium to be at 2 in this patient with alcoholism. -Today his potassium is 4.3 Acute episode of Gout: -Patient has history of gout and he was taking indomethacin in the past. -He is complaining of bilateral ankle pain -We will give him collect tapered off prednisone for 3 days starting from 40 mg and then 30 and then 20 mg. we will continue his indomethacin. We will discontinue colchicine. -Continue Ultram 50 mg every 4 when necessary for the pain and will consider starting his indomethacin if this does not help. Right wrist pain: -Tenosynovitis of right thumb/wrist -No abnormal skin findings, no joint deformity the patient complaining of pain while abduction and palpation. No signs of inflammation or infection. -Pain management according the pain pathway, ice packing and right wrist brace. Back pain: -Patient having history of sciatica -Follow pain pathway. -Continue gabapentin Thrombocytopenia: -Probably due to alcohol use. -We will monitor his platelet count -Avoid any medication that can decrease the function or number of platelets. -No heparin -His platelet count has been improving today his platelet count is 125. Hyperbilirubinemia: -Patient's bilirubin level was high on admission, total bilirubin 2.2 -His haptoglobin is pending but LDH is normal. -Possibly due to fatty liver or alcohol induced. Initially his ALT and AST was elevated that were trended. Mild Hyponatremia: (improved) -His hyponatremia has been improved possibly hypovolemic hyponatremia due to alcoholism. -We will monitor his sodium level - Hyponatremia has been improving gradually. Today his sodium level is 135 Bilateral lower extrimities vericose veins: -Patient having bilateral varicose veins and swelling -Patient is going for Doppler study to rule out DVT. His d-dimer was 654 yesterday. -Ultrasound is negative for DVT but it showed right leg superficial thrombophlebitis. -Patient was instructed to follow-up vascular surgery as outpatient for varicose veins and thrombophlebitis. DVT prophylaxis: Mechanical only considering his thrombocytopenia CODE STATUS: Full code Problem List: 1. Alcohol withdrawal 2. Gout Pain Ratin Pain Location: b/l ankles Pain Goal: Pain 4 or less Pain Plan: pain pathway Tomorrow's Labs & Rationales: none Joshua LOGAN,Joshua 02/24/18 1150: Attending MD Review Statement Attending Statement Attending MD Statement: examined this patient, discuss w/resident/PA/STOCK DEALER, agreed w/resident/PA/STOCK DEALER, reviewed EMR data (avail) Attending Assessment/Plan: Patient seen and examined. Complains of bilateral ankle pains. He also complains of right wrist pain. Colchicine has not helped his pain which was given for possible gout attack. Patient continues to have significant bilateral edema which appears to be from venous incompetence. Chest exam is clear. His ultrasound shows a right superficial thrombophlebitis which does not need treatment except for local warm compresses. Plan * Suggest short course of prednisone 40, 30, 20 mg. Given his edema I would like to avoid prolonged use of steroids * Patient will need a vascular surgery follow-up to assess for venous incompetence * He will need stockings on both legs to reduce edema; he should elevate his legs while resting * Reduce Ativan to 0.5 mg 3 times a day today and then twice a day tomorrow and then stop * Patient currently stable for discharge * He can continue indomethacin or ibuprofen when necessary for pain * Continue gabapentin upon discharge * Patient committee discharge home today
[2018-02-24 08:00] VITALS: BP 136/78
[2018-02-24 08:29] LABS: ABSOLUTE BASOPHIL COUNT 0 /CUMM (0.0-0.2); ABSOLUTE EOSINOPHIL COUNT 0.4 /CUMM (0.0-0.7); ABSOLUTE GRANULOCYTE CT 4.9 /CUMM (1.4-6.5); ABSOLUTE LYMPH COUNT 1.9 /CUMM (1.2-3.4); ABSOLUTE MONOCYTE COUNT 1.1 /CUMM (0.10-0.60); BASOPHIL % 0.4 % (0.0-2.0); EOSINOPHIL % 4.9 % (0-5); GRANULOCYTE % 58.4 % (42.2-75.2); HEMATOCRIT 41.5 % (42-52); MEAN CORPUSCULAR HGB 30.3 PG (27.0-31.0); MEAN CORPUSCULAR HGB CONC 32.9 G/DL (33.0-37.0); MEAN CORPUSCULAR VOLUME 91.9 FL (80.0-94.0); MEAN PLATELET VOLUME 9.1 FL (7.4-10.4); PLATELET COUNT 125 /CUMM (130-400); RBC DISTRIBUTION WIDTH 18.1 % (11.5-14.5); RED BLOOD CELL CT 4.52 /CUMM (4.70-6.10); WHITE BLOOD CELL COUNT 8.3 /CUMM (4.8-10.8)
--- NOTE | 2018-02-24 11:17 | ULTRASOUND REPORT ---
EXAMINATION: US TRIPLEX OF LOWER EXTREMITIES, BILATERAL CLINICAL INFORMATION: Elevated d-dimer. Bilateral lower extremity swelling. COMPARISON: None TECHNIQUE: Color-flow triplex imaging with spectral analysis and compression Doppler were performed on the lower extremities. FINDINGS: Respiratory variation, normal compression and augmented flow are noted throughout the deep venous system lower extremities. The visualized common femoral vein, superficial femoral vein, profunda femoral vein, popliteal vein and midcalf peroneal and posterior tibial venous segments show no evidence of deep venous thrombosis. Varicose veins noted in the in the medial proximal right thigh appear thrombosed with absence of color Doppler and compressibility. Findings are compatible with thrombophlebitis. However, greater saphenous vein appears patent and compressible.. There is no Harrison's cyst. IMPRESSION: Right sided superficial thrombophlebitis involving medial right thigh varicose veins. Patent greater saphenous vein. No sonographic evidence of deep venous thrombosis involving the lower extremities.
[2018-02-24] MEDS ORDERED: CLONIDINE HCL0.1 MG PO (11:43)
[2018-02-24] MEDS ORDERED: GABAPENTIN300 M2 PO (11:44)
[2018-02-24] MEDS ORDERED: INDOMETHACIN50 M1 PO ×2 (11:49→11:53)
[2018-02-24] MEDS ORDERED: PREDNISONE10 M2 PO ×2 (11:52→12:45)
[2018-02-24] MEDS ORDERED: ATIVAN0.5 M1 PO ×2 (11:57→12:45)
--- NOTE | 2018-02-24 12:01 | Patient Discharge Instructions ---
Discharge Instructions General Discharge Information You were seen/treated for: Alcohol withdrawal Acute flare of gout Bilateral lower extremity varicose veins Right leg superficial thrombophlebitis Watch for these problems: Anxiety, chest pain, palpitation, shortness of breath, diarrhea, abdominal pain, pain in legs, increased swelling of the legs and altered mental status. If you experience any of these symptoms face, to ED or call your primary care physician. Special Instructions: Follow-up with your primary care physician in one week. Follow-up with vascular surgery for varicose vein and superficial thrombophlebitis. Please take your medications according to instructions. Follow-up with vascular surgery for bilateral varicose veins Use pressure stockings for lower extremity edema and varicose veins. Please do right leg warm compressions. Diet Recommended Diet: Regular Activity Activity Self Limited: Yes Acute Coronary Syndrome Inclusion Criteria At DC or during hospital stay patient has or had the following: ACS DIAGNOSIS No Discharge Core Measures Meds if any: Prescribed or Continued at Discharge Meds if any: NOT Prescribed or Continued at Discharge Congestive Heart Failure Inclusion Criteria At DC or during hospital stay patient has or had the following: CHF DIAGNOSIS No Discharge Core Measures Meds if any: Prescribed or Continued at Discharge Meds if any: NOT Prescribed or Continued at Discharge Cerebrovascular accident Inclusion Criteria At DC or during hospital stay patient has or had the following: CVA/TIA Diagnosis No Discharge Core Measures Meds if any: Prescribed or Continued at Discharge Meds if any: NOT Prescribed or Continued at Discharge Venous thromboembolism Inclusion Criteria VTE Diagnosis No VTE Type NONE VTE Confirmed by (Test) NONE Discharge Core Measures - Per Current guidelines, there needs to be overlap - treatment for the first 5 days of Warfarin therapy. - If discharged on Warfarin prior to 5 days of - overlap therapy, the patient will need to be - assessed for post discharge needs including - *Post discharge parental anticoagulation - *Warfarin and/or parental anticoagulation education - *Follow up date to check INR post discharge At least 5 days overlap therapy as Inpatient No Meds if any: Prescribed or Continued at Discharge Note: Overlap Therapy is Warfarin and Anticoagulant Meds if any: NOT Prescribed or Continued at Discharge
--- NOTE | 2018-02-24 12:11 | Discharge Summary ---
Visit Information Visit Dates Admission Date: 02/20/18 Discharge Date: 02/24/18 Hospital Course Course Attending Physician: Joshua LOGAN,Joshua Primary Care Physician: Toy Aguilera MD Hospital Course: 42-year-old male with past medical history significant for morbid obesity, alcohol use disorder with multiple admissions for detox, reported alcohol related seizure, obstructive sleep apnea on CPAP at night, previous history of rapid A. fib x 1 not on any AC or rate controlling medications and severe anxiety who presents to the hospital for alcohol detox. ED course: Vitals: Temperature 98.3, pulse 103, respiratory rate 20, blood pressure 166/74, oxygen saturation 96% on room air. Labs: WBC count 7.7, hemoglobin 16.3, hematocrit 47.8, platelet count 121, sodium 141, potassium 3.3, BUN 7, creatinine 0.8, glucose 121, BUNs/creatinine ratio 8.8, AST 74, ALT 84, anion gap 17. Alcohol withdrawal: Patient was admitted for alcohol detox. He denied any suicidal ideation. Seizure precautions were taken although he remained asymptomatic. He was placed on CIWA protocol and scheduled 2 milligram ativan. His CIWA score remained low. He didn't get any extra doses of Ativan. Patient was placed on supplementation of thiamine, vitamin B-12 and folic acid. He completed his alcohol detox. Patient received Zofran as needed for nausea and vomiting during hospital stay. Patient wanted to leave and will prescribe him 3 doses of 0.5mg ativan to take at home to complete his course. Patient agreed to follow up outpatient IOP for alcohol dependency. Patient was advised to abstain from drinking. Hypomagnesemia and hypokalemia: Patient had hypomagnesemia and hypokalemia due to alcoholism. He is magnesium and potassium was repleted. Levels for monitored during hospital stay. Patient remained asymptomatic. Acute episode of Gout: Patient had history of gout and he was complaining of bilateral ankle pain probably due to acute episode of gout. Bilateral ankle x-ray was done that didn 't show any arthritis. Patient had swelling around her ankles probably due to his varicose veins. But there were no signs of inflammation or infection. Patient was taking indomethacin at home. We gave him colchicine to treat acute flare but he didn't get better then we gave him a short course (3 days) of prednisone for acute flare of gout. Patient was instructed to continue his indomethacin after the discharge. Right wrist pain: Patient was complaining of right wrist pain and he was not able to make a fist. Patient was also not able to do thumb management. Leyla test was positive as he was not able to make a fist. Possibly due to tenosynovitis. Patient was instructed to use wrist brace and ice massage. Patient was also instructed to decrease his right hand movements for couple of days. Back pain: We continued gabapentin and back pain was managed according to pain pathway. Thrombocytopenia: Patient had thrombocytopenia probably due to alcoholism. We monitored his platelet count. We avoided any medication including heparin and that can decrease platelet count or its function. Later on patient's platelet count started to increase. Hyperbilirubinemia: Patient had hyperbilirubinemia especially indirect bilirubin was high. We ruled out hemolytic anemia. Ultrasound abdomen showed possible fatty liver. His hyperbilirubinemia was possibly due to fatty liver changes or alcohol induced. Patient was instructed to follow primary care physician for further workup. Mild Hyponatremia: Patient had mild hyponatremia possibly due to hypovolemic hyponatremia due to alcoholism. His sodium level was monitored. Patient was encouraged to drink more water. His sodium level started to improve. Patient remained asymptomatic during hospital stay. Bilateral lower extrimities vericose veins: Patient had bilateral lower extremity varicose vein with swelling of the legs. His Doppler study remains negative for DVT. Patient had right leg superficial thrombophlebitis. Patient was instructed to do warm compressions for superficial thrombophlebitis and wear compression stockings for varicose vein. Patient was instructed to follow vascular surgery as outpatient for varicose veins. DVT prophylaxis: Mechanical only considering his thrombocytopenia CODE STATUS: Full code Allergies: Coded Allergies: No Known Allergies (02/20/18) Pertinent Lab Results: Abdominal ultrasound on 02/21/2018: IMPRESSION: Liver of diffuse increased echogenicity without focal lesions. The appearance is nonspecific, but consistent with fatty infiltration. Cholelithiasis without evidence of cholecystitis. Ankle x-ray on 02/23/2018: IMPRESSION: 1. No acute osseous injury at either ankle. No fracture or malalignment. 2. Obesity and diffuse, nonspecific edema of subcutaneous tissues, possibly due to venous insufficiency or fluid overload. 3. The smooth periosteal reaction along the distal diaphysis of the tibia and fibula, bilaterally, could be an osseous manifestation of chronic venous insufficiency of the extremity. Wrist x-ray on 02/23/2018: IMPRESSION: 1. No acute fracture or malalignment within the distal forearm or wrist. 2. The first carpometacarpal joint is normal. Venous Doppler study on 02/24/2018: IMPRESSION: Right sided superficial thrombophlebitis involving medial right thigh varicose veins. Patent greater saphenous vein. No sonographic evidence of deep venous thrombosis involving the lower extremities. WBC count 8.3, hemoglobin 13.7, hematocrit 41.5, palate 125, sodium 135, potassium 4.3, creatinine 0.6, BUN 10 Disposition Summary Disposition Principal Diagnosis: Alcohol withdrawal Acute flare of gout Bilateral lower extremity varicose veins Right leg superficial thrombophlebitis Additional Diagnosis: History of back pain Discharge Disposition: home or self care Discharge Instructions General Discharge Information Code Status: Full Code Patient's Diet: Regular diet Patient's Activity: Self limited Follow-Up Instructions/Appts: Follow-up with your primary care physician in one week. Follow-up with vascular surgery for varicose vein and superficial thrombophlebitis. Please take your medications according to instructions. Follow-up with vascular surgery for bilateral varicose veins Use pressure stockings for lower extremity edema and varicose veins. Please do right leg warm compressions. Medications at Discharge Discharge Medications: Continue taking these medications: Multivitamin (Multi-Day Vitamins) 1 EACH TABLET 1 Tablet ORAL Every Morning Comments: Last Taken: 04/11/17 Time: 9:00 AM Fish Oil (Sea-Talent 50 Capsule) 1 EACH CAPSULE 1 Capsule ORAL DAILY Comments: NOT GIVEN IN HOSPITAL C/Sourcherry/Celery/Grape Seed (Tart Linn Capsule) 1 EACH CAPSULE 1 Capsule ORAL DAILY Comments: NOT GIVEN IN HOSPITAL Thiamine HCl (Vitamin B-1) 100 MG TABLET 100 Milligram ORAL DAILY Days = 30 Comments: Last Taken: 04/11/17 Time: 9:00 AM Folic Acid (Folic Acid) 1 MG TABLET 1 Tablet ORAL DAILY Qty = 30 Comments: Last Taken: 02/24/18 Time: 0900 AM Clonidine HCl (Clonidine HCl) 0.1 MG TABLET 1 Tablet ORAL THREE TIMES DAILY Qty = 30 Comments: LAST TAKEN: 02/24/18 @ 9AM Gabapentin (Gabapentin) 300 MG CAPSULE 1 Capsule ORAL EVERY 8 HOURS Qty = 30 Comments: LAST TAKEN: 02/24/18 @ 9 AM Indomethacin (Indomethacin) 50 MG CAPSULE 1 Capsule ORAL EVERY 8 HOURS Qty = 30 Instructions: with food Comments: NOT TAKEN IN HOSPITAL Start taking the following new medications: Prednisone (Prednisone) 10 MG TABLET 0 ORAL DAILY Qty = 5 No Refills Instructions: 30 mg on saturday02/25/18 20 mg on saturday on 02/26/18 and then stop. Comments: (40 MG TAKEN 02/24/18 @ 1200 PM) Lorazepam (Ativan) 0.5 MG TABLET 1 Tablet ORAL TWICE DAILY Qty = 3 No Refills Instructions: Take one tablet this afternoon on 02/24/18 Take one tablet in am and one in pm tomorrow 02/25/18 Then stop Comments: LAST TAKEN: 02/24/18 @ 2 PM 0.5 MG Copies To: Willy LOGAN,Toy Fisher
[2018-02-24 13:49] VITALS: BP 136/78
== END 2018-02-24 13:55 | DRG 897 ==
LOC: ERH 00:31 → 2NA 08:52 → ERHI 08:52 → ENRESERV 09:21 → ENTRNSPT 10:56 → EDTRNSPTSTS 11:23 → EDTRNSPT 11:23 → 2NA 11:34 → CMPTRNSPT 11:39 → 2NA 02-24 08:43 → ENPENDDIS 02-24 13:27 → 2NA 02-24 13:55
PROVIDERS: Emergency Medicine; Student in an Organized Health Care Education/Training Program
DX: F10.229 Alcohol dependence with intoxication, unspecified (principal); E66.01 Morbid (severe) obesity due to excess calories; R45.851 Suicidal ideations; Z68.43 Body mass index [BMI] 50.0-59.9, adult; F10.239 Alcohol dependence with withdrawal, unspecified; Y90.8 Blood alcohol level of 240 mg/100 ml or more; G47.33 Obstructive sleep apnea (adult) (pediatric); E87.6 Hypokalemia; E83.42 Hypomagnesemia; F41.9 Anxiety disorder, unspecified; M10.9 Gout, unspecified; M54.9 Dorsalgia, unspecified; E80.6 Other disorders of bilirubin metabolism; I83.93 Asymptomatic varicose veins of bilateral lower extremities
CPT/HCPCS: 2NAP; 84133; 84300; 36415; 36592; 73100-RT; 73600-LT; 73600-RT; 80307; 82436; 82570; 83010; 93970; 96374; 99291; G0480; J3101; J3490; J7042; J7512

== ENCOUNTER 2018-06-29 17:57 | Inpatient (IN) | payer OTHER ==
[~2018-06-29] VITALS: Ht 182.9 cm; Wt 184.6 kg
[~2018-06-29 17:57] MED LIST changes: +CLONIDINE HCL0.1 MG PO; +GABAPENTIN300 M2 PO; +INDOMETHACIN50 M1 PO; +LISINOPRIL10 M1 PO; +PREDNISONE10 M2 PO
[2018-06-29 18:45] VITALS: BP 145/97
[2018-06-29 19:03] LABS: ABSOLUTE BASOPHIL COUNT 0 /CUMM (0.0-0.2); ABSOLUTE EOSINOPHIL COUNT 0.2 /CUMM (0.0-0.7); ABSOLUTE GRANULOCYTE CT 2.7 /CUMM (1.4-6.5); ABSOLUTE LYMPH COUNT 2.1 /CUMM (1.2-3.4); ABSOLUTE MONOCYTE COUNT 0.5 /CUMM (0.10-0.60); BASOPHIL % 0.6 % (0.0-2.0); EOSINOPHIL % 3.5 % (0-5); GRANULOCYTE % 48.6 % (42.2-75.2); MEAN CORPUSCULAR HGB 30.9 PG (27.0-31.0); MEAN CORPUSCULAR HGB CONC 33.9 G/DL (33.0-37.0); MEAN CORPUSCULAR VOLUME 91.2 FL (80.0-94.0); MEAN PLATELET VOLUME 8.6 FL (7.4-10.4); PLATELET COUNT 93 /CUMM (130-400); RBC DISTRIBUTION WIDTH 17.8 % (11.5-14.5); RED BLOOD CELL CT 5.26 /CUMM (4.70-6.10); WHITE BLOOD CELL COUNT 5.5 /CUMM (4.8-10.8)
--- NOTE | 2018-06-29 19:44 | ED PSYCHIATRIC COMPLAINT ---
History of Present Illness General Chief Complaint: Psychiatric Related Complaint Stated Complaint: +ETOH, +SI Source: patient Exam Limitations: poor historian, intoxication Allergies Coded Allergies: No Known Allergies (02/20/18) Reconcile Medications C/Sourcherry/Celery/Grape Seed (Tart [place] Capsule) 1 EACH CAPSULE 1 CAP PO DAILY SUPPLEMENT (Reported) Clonidine HCl 0.1 MG TABLET 1 TAB PO TID Alcoholism (Reported) Fish Oil (Sea-[place] 50 Capsule) 1 EACH CAPSULE 1 CAP PO DAILY SUPPLEMENT ( Reported) Folic Acid 1 MG TABLET 1 TAB PO DAILY alcohol Gabapentin 300 MG CAPSULE 1 CAP PO Q8 Neuropathic pain (Reported) Indomethacin 50 MG CAPSULE 1 CAP PO Q8 Gout (Reported) with food Lorazepam (Ativan) 0.5 MG TABLET 1 TAB PO BID Alcohol withdrawal Take one tablet this afternoon on 02/24/18 Take one tablet in am and one in pm tomorrow 02/25/18 Then stop Multivitamin (Multi-Day Vitamins) 1 EACH TABLET 1 TAB PO QAM SUPPLEMENT ( Reported) Prednisone 10 MG TABLET 0 PO DAILY Gout 30 mg on saturday02/25/18 20 mg on saturday on 02/26/18 and then stop. Thiamine HCl (Vitamin B-1) 100 MG TABLET 100 MG PO DAILY SUPPLEMENT Triage Note: PT TO ED WITH FRIEND AFTER MAKING SI STATEMENTS VIA TEXT MESSAGE. PT HEAVILY INTOXICATED ON ARRIVAL. DAILY HEAVY ETOH USE. DENIES PLAN. Triage Nurses Notes Reviewed? yes HPI: Patient presents for evaluation of alcohol dependence. According to the patient 's friend he had made suicide comments in a text. The patient admits to heavy alcohol intake, as much as a gallon of vodka daily. He denies associated drug use. He also states that he fell yesterday and is complaining of a headache. (Ynes LOGAN,Brady Moralez) Vital Signs & Intake/Output Vital Signs & Intake/Output Vital Signs Date Time Temp Pulse Resp B/P B/P Pulse O2 O2 Flow FiO2 Mean Ox Delivery Rate 06/30 1011 97.9 130 20 159/98 98 Room Air 06/30 1006 97.9 130 20 159/98 06/30 0815 98.2 75 20 136/78 97 06/30 0800 98.2 75 18 136/78 06/30 0745 97.0 80 22 136/89 06/30 0600 97.0 80 22 136/89 06/30 0600 97.0 80 22 136/89 93 Room Air 06/30 0500 77 22 160/96 06/30 0442 77 22 160/96 96 Room Air 06/30 0406 97.9 120 18 121/93 93 Room Air 06/30 0400 97.9 120 18 121/93 06/30 0117 84 94 06/30 0117 97.4 88 18 120/70 94 Room Air 06/30 0115 97.4 88 18 120/70 06/30 0019 71 92 06/29 2354 97.0 87 18 164/113 06/29 2354 97.0 87 18 164/113 96 Room Air 06/29 2256 97.4 88 18 128/87 98 Room Air 06/29 2251 97.6 840 18 143/90 06/29 2251 97.6 84 18 143/90 93 Room Air 06/29 2102 98.7 87 18 116/68 98 Room Air 06/29 2100 98.7 87 18 116/68 06/29 1845 98.6 105 17 145/97 06/29 1829 98.6 105 17 145/97 95 Room Air ED Intake and Output 06/30 0000 06/29 1200 Intake Total Output Total 200 Balance -200 Output, Urine 200 (Bethany LOGAN,Efe Martinez) Past History Travel History Traveled to [place] past 21 day No Medical History Any Pertinent Medical History? 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 No (Ynes LOGAN,Brady Moralez) Review of Systems Review of Systems Constitutional: Reports: no symptoms. EENTM: Reports: no symptoms. Respiratory: Reports: no symptoms. Cardiovascular: Reports: no symptoms. GI: Reports: no symptoms. Genitourinary: Reports: no symptoms. Musculoskeletal: Reports: no symptoms. Skin: Reports: no symptoms. Neurological/Psychological: Reports: see HPI, headache. Hematologic/Endocrine: Reports: no symptoms. Immunologic/Allergic: Reports: no symptoms. All Other Systems: Reviewed and Negative (Ynes LOGAN,Brady Moralez) Physical Exam Physical Exam General Appearance: SEE BELOW Neurological/Psychiatric: SEE BELOW Comments: Gen.: Well-nourished, well-developed, no acute respiratory distress. EtOH-like odor. Head: Normocephalic, partial-thickness linear laceration approximately 2 cm over the right parietal scalp Eyes: Normal inspection bilaterally, PERRLA, EOMI, horizontal nystagmus with lateral gaze Ears: Normal inspection bilaterally, TMs normal, no mccullough sign Nose: Normal inspection Throat/mouth : Moist mucosa Neck: Supple, full range of motion, no goiter Heart: Regular rate and rhythm, no murmurs rubs or gallops Lungs: Clear to auscultation bilaterally with normal air entry Chest: Nontender Back: Normal range of motion Abdomen: Soft, nontender, nondistended, normal bowel sounds Extremities: Normal range of motion grossly, equal radial pulses, no cyanosis, bilateral 2+ leg edema with chronic skin changes but no evidence of cellulitis Neurologic: Cranial nerves grossly intact, speech is clear Skin: warm and dry Psychiatric: Calm, cooperative, no apparent delusions or hallucinations, emotionally labile with occasional sobbing SAD PERSONS Done? REFERRED TO CRISIS (Ynes LOGAN,Brady Moralez) Progress Radiology Impression: PATIENT: GABBIE ELLER PRESENT AGE: 43 PATIENT ACCOUNT NO: [id number] : 76 LOCATION: [facility] ORDERING PHYSICIAN: Brady Quick MD SERVICE DATE: 06/30/18 EXAM TYPE: RAD - XRY-LUMBOSACRAL SPINE AP & LAT EXAMINATION: XR LUMBOSACRAL SPINE CLINICAL INFORMATION: Status post fall with back pain. Presumptive diagnosis of fracture. COMPARISON: Lumbosacral spine films dated 04/08/2017. TECHNIQUE: 2 views of the lumbosacral spine were obtained on 3 images. FINDINGS: Mild convex left lumbar scoliosis is seen. No acute fracture, dislocation or paraspinal soft tissue changes are noted. There is mild to moderate degenerative disc disease seen throughout the lumbar spine with vertebral endplate spurring and sclerosis seen. There is relative sparing of the lumbosacral junction. Mild facet arthropathy is seen throughout the mid and lower lumbar spine. There is chronic mild widening of the pubic symphysis, measuring up to 1.1 cm in width, unchanged from 2016. Sacroiliac joints and hip joints to the extent seen are unremarkable. IMPRESSION: 1. Mild levoscoliosis with diffuse mild to moderate degenerative disc disease throughout the lumbar spine with relative sparing of the lumbosacral junction. 2. Mild facet arthropathy throughout the mid and lower lumbar spine. 3. Chronic mild widening of the pubic symphysis, unchanged since . DICTATED BY: Paty Qureshi MD DATE/TIME DICTATED:06/30/181002 CHIEF DEPUTY:OSMANY DATE/TIME TRANSCRIBED:06/30/181002 CONFIDENTIAL, DO NOT COPY WITHOUT APPROPRIATE AUTHORIZATION. <Electronically signed in Other Vendor System> SIGNED BY: Paty Qureshi MD 06/30/18 1013, PATIENT: GABBIE ELLER PRESENT AGE: 43 PATIENT ACCOUNT NO: [id number] : 76 LOCATION: [facility] ORDERING PHYSICIAN: Brady Quick MD SERVICE DATE: 06/29/18 EXAM TYPE: CAT - CT CERV SPINE WO IV CONTRAST; CT HEAD WO IV CONTRAST EXAMINATION: CT HEAD WITHOUT CONTRAST CT CERVICAL SPINE WITHOUT CONTRAST CLINICAL INFORMATION: Head injury. Fall. Headache. COMPARISON: None. TECHNIQUE: Contiguous axial imaging was performed from the skullbase to vertex without intravenous administration of contrast. Multidetector helical imaging was performed through the cervical spine. DLP: 1064.97 mGy-cm. FINDINGS: HEAD: There is no evidence of acute intracranial hemorrhage or territorial infarction. No abnormal mass effect or midline shift is seen. Desai to white matter differentiation is well preserved. No extra-axial fluid collections are identified. The ventricles are normal in size. Brain parenchymal attenuation is normal. The osseous structures and soft tissues are normal. The mastoid air cells and visualized portions of the paranasal sinuses are well aerated. CERVICAL SPINE: No acute fracture or dislocation is identified in the cervical spine. There is a reversal of the normal cervical lordosis. Mild disc space narrowing and endplate spurring noted at C5-C6. The disc spaces are maintained. No focal protrusion is noted. The atlantoaxial articulation is normally maintained. The paraspinal soft tissues are normal. The lung apices are clear. IMPRESSION: 1. No acute intracranial pathology. 2. No evidence of acute cervical spine traumatic injury. Mild spondylosis at C5-C6 and reversal of the normal cervical lordosis. DICTATED BY: Gabbie Draper MD DATE/TIME DICTATED:06/29/182131 CHIEF DEPUTY:OSMANY DATE/TIME TRANSCRIBED:06/29/182131 CONFIDENTIAL, DO NOT COPY WITHOUT APPROPRIATE AUTHORIZATION. <Electronically signed in Other Vendor System> SIGNED BY: Gabbie Draper MD 06/29/182137 Comments: 06/29/2018 7 PM patient's case signed out to Dr. Sims at shift change management lead. 06/30/2018 7:51:54 AM patient signed out to me by Dr. Sims at shift change management lead. (Ynes LOGAN,Brady Moralez) Differential Diagnosis: drug intoxication, suicidality vs other. Plan of Care: Orders Procedure Date/time Status Regular Diet 06/30 B Active Add-on Test (ER Only) 06/30 1100 Active Pathway - chart 06/30 1058 Active THERAPIST ORDERS 06/30 0015 Complete CONTIN. POSITIVE AIRWAY PRESS 06/29 2334 Complete Continuous Observation Monitor 06/29 1813 Active CIWA 06/29 181 Active URINE DRUGS OF ABUSE 06/29 181 Complete MAGNESIUM 06/29 181 Complete ETHANOL 06/29 181 Complete COMPREHENSIVE METABOLIC PANEL 06/29 181 Complete CBC WITHOUT DIFFERENTIAL 06/29 181 Complete ED CRISIS PSYCH CONSULT 06/29 181 Active Current Medications Sig/Vamsi Start time Last Medication Dose Stop Time Status Admin Lorazepam 2 MG Q2P PRN 06/30 1100 UNVr (Ativan) Lorazepam 1 MG Q2P PRN 06/30 1100 UNVr (Ativan) Ibuprofen 800 MG Q6P PRN 06/29 2300 AC 06/30 (Motrin) 0754 Laboratory Tests 06/29/18 2155: Urine Opiates Screen < 100, Methadone Screen < 40, Barbiturate Screen < 60, Ur Phencyclidine Scrn < 6.00, Amphetamines Screen < 100, U Benzodiazepines Scrn 234 H, Urine Cocaine Screen < 50, Urine Cannabis Screen 10.40 06/29/18 1834: Anion Gap 12, Estimated GFR > 60, BUN/Creatinine Ratio 8.6, Glucose 116 H, Calcium 8.2 L, Magnesium 1.4 L, Total Bilirubin 2.1 H, AST 113 H, ALT 99 H, Alkaline Phosphatase 103, Total Protein 7.6, Albumin 4.1, Globulin 3.5, Albumin/ Globulin Ratio 1.2, CBC w Diff NO MAN DIFF REQ, RBC 5.26, MCV 91.2, MCH 30.9, MCHC 33.9, RDW 17.8 H, MPV 8.6, Gran % 48.6, Lymphocytes % 37.9, Monocytes % 9.4 H, Eosinophils % 3.5, Basophils % 0.6, Absolute Granulocytes 2.7, Absolute Lymphocytes 2.1, Absolute Monocytes 0.5, Absolute Eosinophils 0.2, Absolute Basophils 0, Serum Alcohol 528.0 (Efe Sims MD) Departure Departure Condition: Stable Referrals: Willy LOGAN,Toy Fisher (PCP/Family) Departure Forms: Customer Survey General Discharge Information Admission Note Spoke With: Marly LOGAN,Susu Gee Documentation of Exam: Documentation of any treatments & extenuating circumstances including Concerns Regarding Discharge (functional status, medication knowledge or non-compliance, living conditions, etc.) that warrant an admission rather than observation: Continued alcohol consumption places the patient at high risk of pancreatitis, pancreatic failure, liver failure and cirrhosis. In order to avoid this the patient will need to cease drinking alcohol. Patient's alcohol use places pt at high risk of seizures (patient has suffered alcohol withdrawal seizures in the past) and delirium tremens during cessation. Patient will be at high risk of withdrawal seizures and delirium tremens (both of which can be fatal) for up to 5 days after stopping alcohol. pt will require IV Ativan to prevent these complications. pt is therefore a very poor candidate for outpatient treatment given the above concerns and treatment needs. Pt will require a multiple day hospitalization. (Ynes LOGAN,Brady Moralez) Departure Disposition: STILL A PATIENT Clinical Impression Primary Impression: Depression Secondary Impressions: Alcohol intoxication Comments pt to be signed out to dr. quick, 06/30/18, 7am. (Efe Sims MD) Critical Care Note Critical Care Note Critical Care Time: 30-74 min (Brady Quick MD)
[2018-06-29 21:00] VITALS: BP 116/68
--- NOTE | 2018-06-29 21:38 | CT SCAN REPORT ---
EXAMINATION: CT HEAD WITHOUT CONTRAST CT CERVICAL SPINE WITHOUT CONTRAST CLINICAL INFORMATION: Head injury. Fall. Headache. COMPARISON: None. TECHNIQUE: Contiguous axial imaging was performed from the skullbase to vertex without intravenous administration of contrast. Multidetector helical imaging was performed through the cervical spine. DLP: 1064.97 mGy-cm. FINDINGS: HEAD: There is no evidence of acute intracranial hemorrhage or territorial infarction. No abnormal mass effect or midline shift is seen. Desai to white matter differentiation is well preserved. No extra-axial fluid collections are identified. The ventricles are normal in size. Brain parenchymal attenuation is normal. The osseous structures and soft tissues are normal. The mastoid air cells and visualized portions of the paranasal sinuses are well aerated. CERVICAL SPINE: No acute fracture or dislocation is identified in the cervical spine. There is a reversal of the normal cervical lordosis. Mild disc space narrowing and endplate spurring noted at C5-C6. The disc spaces are maintained. No focal protrusion is noted. The atlantoaxial articulation is normally maintained. The paraspinal soft tissues are normal. The lung apices are clear. IMPRESSION: 1. No acute intracranial pathology. 2. No evidence of acute cervical spine traumatic injury. Mild spondylosis at C5-C6 and reversal of the normal cervical lordosis.
[2018-06-29 22:51] VITALS: BP 143/90
[2018-06-29 23:54] VITALS: BP 164/113
[2018-06-30] VITALS (10 sets, daily range): BP systolic 120–160; BP diastolic 60–98
--- NOTE | 2018-06-30 10:13 | RADIOLOGY REPORT ---
EXAMINATION: XR LUMBOSACRAL SPINE CLINICAL INFORMATION: Status post fall with back pain. Presumptive diagnosis of fracture. COMPARISON: Lumbosacral spine films dated 04/08/2017. TECHNIQUE: 2 views of the lumbosacral spine were obtained on 3 images. FINDINGS: Mild convex left lumbar scoliosis is seen. No acute fracture, dislocation or paraspinal soft tissue changes are noted. There is mild to moderate degenerative disc disease seen throughout the lumbar spine with vertebral endplate spurring and sclerosis seen. There is relative sparing of the lumbosacral junction. Mild facet arthropathy is seen throughout the mid and lower lumbar spine. There is chronic mild widening of the pubic symphysis, measuring up to 1.1 cm in width, unchanged from 04/08/2017. Sacroiliac joints and hip joints to the extent seen are unremarkable. IMPRESSION: 1. Mild levoscoliosis with diffuse mild to moderate degenerative disc disease throughout the lumbar spine with relative sparing of the lumbosacral junction. 2. Mild facet arthropathy throughout the mid and lower lumbar spine. 3. Chronic mild widening of the pubic symphysis, unchanged since 04/08/2017.
[2018-06-30 12:00] LABS: PT 12.1 SEC (9.4-12.5)
--- NOTE | 2018-06-30 14:23 | History & Physical ---
Jigar LOGAN,[facility] 06/30/18 1421: General Information and HPI MD Statement: I have seen and personally examined GABBIE ELLER and documented this H&P. The patient is a 43 year old M who presented with a patient stated chief complaint of etoh withdrawal. Source of Information: patient Exam Limitations: no limitations History of Present Illness: 43-year-old male with past medical history significant for morbid obesity, alcohol use disorder with multiple admissions for detox, reported alcohol related seizure, obstructive sleep apnea used to be on CPAP at night, previous history of rapid A. fib x 1 not on any AC or rate controlling medications and severe anxiety who presents to the hospital for alcohol detox. Last drink was yesterday, pt reports drinking a "handle" of vodka on a daily basis. Pt reports being admitted at [place] 2 weeks ago for etoh detox and suggested he may have left "AMA" and went back home resuming his drinking habits. He reports an etoh related seizure in 2014, but denies any new episodes. Even though ER documents that the patient's friend reported patient texting a suicidal ideation, he adamntly denies this. He also denies any HI. He endorses increased anxiety but no hallucination or tremor like activities. 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 He does blame his alcoholism for losing his job and family issues. Allergies/Medications Allergies: Coded Allergies: No Known Allergies (02/20/18) Home Med list C/Sourcherry/Celery/Grape Seed (Tart [place] Capsule) 1 EACH CAPSULE 1 CAP PO DAILY SUPPLEMENT (Reported) Clonidine HCl 0.1 MG TABLET 1 TAB PO TID Alcoholism (Reported) Fish Oil (Sea-[place] 50 Capsule) 1 EACH CAPSULE 1 CAP PO DAILY SUPPLEMENT ( Reported) Folic Acid 1 MG TABLET 1 TAB PO DAILY alcohol Gabapentin 300 MG CAPSULE 1 CAP PO Q8 Neuropathic pain (Reported) Indomethacin 50 MG CAPSULE 1 CAP PO Q8 Gout (Reported) with food Lorazepam (Ativan) 0.5 MG TABLET 1 TAB PO BID Alcohol withdrawal Take one tablet this afternoon on 02/24/18 Take one tablet in am and one in pm tomorrow 02/25/18 Then stop Multivitamin (Multi-Day Vitamins) 1 EACH TABLET 1 TAB PO QAM SUPPLEMENT ( Reported) Prednisone 10 MG TABLET 0 PO DAILY Gout 30 mg on saturday02/25/18 20 mg on saturday on 02/26/18 and then stop. Thiamine HCl (Vitamin B-1) 100 MG TABLET 100 MG PO DAILY SUPPLEMENT Past History Travel History Traveled to [place] past 21 day No Medical History Neurological: WITHDRAWAL SEIZURE EENT: NONE Cardiovascular: AFIB Respiratory: obstructive sleep apnea on CPAP Gastrointestinal: NONE Hepatic: NONE Renal: NONE Musculoskeletal: NONE, sciatica Psychiatric: alcohol dependence Endocrine: NONE Blood Disorders: NONE Cancer(s): NONE BANK ANALYST/Reproductive: NONE History of MRSA: No History of VRE: No History of CDIFF: No Isolation History: Standard Surgical History Surgical History: appendectomy Past Family/Social History Family History Relations & Conditions if any MOTHER FH: multiple sclerosis Psychosocial History Who Do You Live With? spouse Services at Home: None Primary Language: American ETOH Use: alcoholic Illicit Drug Use: UTD Functional Ability ADLs Independent: dressing, eating, toileting, bathing. Ambulation: independent Review of Systems Review of Systems Constitutional: Reports: see HPI. EENTM: Reports: no symptoms. Cardiovascular: Reports: no symptoms. Respiratory: Reports: no symptoms. GI: Reports: no symptoms. Genitourinary: Reports: no symptoms. Musculoskeletal: Reports: no symptoms. Skin: Reports: no symptoms. Neurological/Psychological: Reports: anxiety. Hematologic/Endocrine: Reports: no symptoms. Immunologic/Allergic: Reports: no symptoms. Exam & Diagnostic Data Last 24 Hrs of Vital Signs/I&O Vital Signs Date Time Temp Pulse Resp B/P B/P Pulse O2 O2 Flow FiO2 Mean Ox Delivery Rate 06/30 1840 98.5 105 21 150/80 97 Room Air 06/30 1800 98.5 105 21 150/80 06/30 1739 97 CPAP 06/30 1607 98.8 77 18 138/70 98 06/30 1344 98.8 83 18 133/80 97 06/30 1011 97.9 130 20 159/98 98 Room Air 06/30 1006 97.9 130 20 159/98 06/30 0815 98.2 75 20 136/78 97 06/30 0800 98.2 75 18 136/78 06/30 0745 97.0 80 22 136/89 06/30 0600 97.0 80 22 136/89 06/30 0600 97.0 80 22 136/89 93 Room Air 06/30 0500 77 22 160/96 06/30 0442 77 22 160/96 96 Room Air 06/30 0406 97.9 120 18 121/93 93 Room Air 06/30 0400 97.9 120 18 121/93 06/30 0117 84 94 06/30 0117 97.4 88 18 120/70 94 Room Air 06/30 0115 97.4 88 18 120/70 06/30 0019 71 92 06/29 2354 97.0 87 18 164/113 06/29 2354 97.0 87 18 164/113 96 Room Air 06/29 2256 97.4 88 18 128/87 98 Room Air 06/29 2251 97.6 840 18 143/90 06/29 2251 97.6 84 18 143/90 93 Room Air 06/29 2102 98.7 87 18 116/68 98 Room Air 06/29 2100 98.7 87 18 116/68 Intake & Output 06/30 1600 06/30 0800 06/30 0000 Intake Total Output Total 300 200 Balance -300 -200 Output, Urine 300 200 Physical Exam General Appearance Alert, Oriented X3, Cooperative, appears mildly anxious, obese Skin No Significant Lesion Skin Temp/Moisture Exam: Warm/Dry Sepsis Skin Exam (color): Normal for Ethnicity HEENT Atraumatic, Mucous Membr. moist/pink Neck No JVD Lymphatic Cervical nl Cardiovascular Regular Rate, Normal S1, Normal S2 Lungs Clear to Auscultation, Normal Air Movement Abdomen Normal Bowel Sounds, Soft Neurological Normal Gait, Normal Speech, Sensation Intact, Reflexes 2+ Extremities No Edema, No Tenderness/Swelling Vascular Pulses Symmetrical Last 24 Hrs of Labs/[place]: Laboratory Tests 06/30/18 1140: PT 12.1, INR 1.11 06/29/18 2155: Urine Opiates Screen < 100, Methadone Screen < 40, Barbiturate Screen < 60, Ur Phencyclidine Scrn < 6.00, Amphetamines Screen < 100, U Benzodiazepines Scrn 234 H, Urine Cocaine Screen < 50, Urine Cannabis Screen 10.40 Diagnostic Data Other Results EXAM TYPE: CAT - CT CERV SPINE WO IV CONTRAST; CT HEAD WO IV CONTRAST EXAMINATION: CT HEAD WITHOUT CONTRAST CT CERVICAL SPINE WITHOUT CONTRAST CLINICAL INFORMATION: Head injury. Fall. Headache. COMPARISON: None. TECHNIQUE: Contiguous axial imaging was performed from the skullbase to vertex without intravenous administration of contrast. Multidetector helical imaging was performed through the cervical spine. DLP: 1064.97 mGy-cm. FINDINGS: HEAD: There is no evidence of acute intracranial hemorrhage or territorial infarction. No abnormal mass effect or midline shift is seen. Desai to white matter differentiation is well preserved. No extra-axial fluid collections are identified. The ventricles are normal in size. Brain parenchymal attenuation is normal. The osseous structures and soft tissues are normal. The mastoid air cells and visualized portions of the paranasal sinuses are well aerated. CERVICAL SPINE: No acute fracture or dislocation is identified in the cervical spine. There is a reversal of the normal cervical lordosis. Mild disc space narrowing and endplate spurring noted at C5-C6. The disc spaces are maintained. No focal protrusion is noted. The atlantoaxial articulation is normally maintained. The paraspinal soft tissues are normal. The lung apices are clear. IMPRESSION: 1. No acute intracranial pathology. 2. No evidence of acute cervical spine traumatic injury. Mild spondylosis at C5-C6 and reversal of the normal cervical lordosis. DICTATED BY: Gabbie Draper MD Assessment/Plan Assessment: 43-year-old male with past medical history significant for morbid obesity, alcohol use disorder with multiple admissions for detox, reported alcohol related seizure, presents to [facility] ED requesting detox. He denies SI/HI or seizure like activities. Impression * Etoh withdrawal. * Suicidal ideation (?) * History of chronic diseases: BOBBY, morbid obesity, etoh abuse Plan Admit to [facility] med 1:1 sitter psych consult CIWA monitoring Lorazepam IV prn dosing in addition to schedule oral (2mg q8H). Thiamine/folate/multiviatmin seizure precaution GI PPX continue cpap with home settings Zofran iv 4m q4-6h prn nausea/vomiting Social consult As Ranked By This Provider Problem List: 1. Alcohol withdrawal Core Measures/Misc (06/30) Acute Coronary Syndrome ACS Diagnosis: No Congestive Heart Failure Congestive Heart Failure Diagnosis No Cerebrovascular Accident CVA/TIA Diagnosis: No VTE (View Protocol) VTE Risk Factors Acute Medical Illness No Mechanical VTE Prophylaxis d/t N/A MechProphylax Ordered No VTE Pharm Prophylaxis d/t NA PharmProphylax ordered Sepsis (View protocol) Sepsis Present: No If YES complete Sepsis Event Note If YES complete Sepsis Event Note Maria Jose 07/01/18 1005: Core Measures/Misc (06/30) Sepsis (View protocol) If YES complete Sepsis Event Note If YES complete Sepsis Event Note Attending MD Review Statement Attending Statement Attending MD Statement: examined this patient, discuss w/resident/PA/UPSET OPERATOR, agreed w/resident/PA/UPSET OPERATOR, discussed with family, reviewed EMR data (avail), discussed with nursing, discussed with case mgmt, reviewed images, amended to note
[2018-07-01] VITALS (11 sets, daily range): BP systolic 122–150; BP diastolic 50–90
--- NOTE | 2018-07-01 07:59 | PN- Housestaff ---
Stefan Acuna 07/01/18 0759: Subjective Follow-up For: Alcohol detox Subjective: Patient seen and examined at bedside. He is complaining of anxiety last night he demanding some medication for anxiety. He denies fever, chills, chest pain, abdominal pain, diarrhea, constipation, burning micturition, seizures, Review of Systems Constitutional: Reports: see HPI. Objective Last 24 Hrs of Vital Signs/I&O Vital Signs Date Time Temp Pulse Resp B/P B/P Pulse O2 O2 Flow FiO2 Mean Ox Delivery Rate 07/01 0906 98.0 75 20 136/90 07/01 0655 98.0 75 20 136/90 96 Room Air 07/01 0000 CPAP 07/01 0000 99.1 88 21 150/60 06/30 2239 99.1 88 21 150/60 95 Room Air 06/30 2144 82 94 06/30 2126 158/50 06/30 1940 150/60 06/30 1840 98.5 105 21 150/80 97 Room Air 06/30 1800 98.5 105 21 150/80 06/30 1739 97 CPAP 06/30 1607 98.8 77 18 138/70 98 06/30 1344 98.8 83 18 133/80 97 Intake & Output 07/01 1600 07/01 0800 07/01 0000 Intake Total 320 440 Output Total Balance 320 440 Intake, Oral 320 440 Number 1 Bowel Movements Patient 407 lb 382 lb Weight Weight Bed scale Measurement Method Physical Exam General Appearance: Alert, Oriented X3, Cooperative, No Acute Distress Cardiovascular: Normal S1, Normal S2 Lungs: Clear to Auscultation, Normal Air Movement Abdomen: Normal Bowel Sounds, Soft, No Tenderness, No Hepatospenomegaly Neurological: Normal Gait, Normal Speech, Strength at 5/5 X4 Ext, Normal Tone, Sensation Intact Extremities: No Clubbing, No Cyanosis, No Edema, Normal Pulses Assessment/Plan Assessment: 43-year-old morbidly obese male with past medical history alcohol disorder status post multiple admission for alcohol detox, reported alcohol-related seizure, past medical history of A. fib not on anticoagulant, obstructive sleep apnea on CPAP, history of suicidal ideation texted to his friend presented to [facility] for alcohol detox At the time of presentation to hospital his vitals and labs are given below Vitals: Blood pressure 136/90, pulse rate 75, respiratory rate 20, temperature 98.0, oxygen saturation 95% Labs: Impression * Etoh withdrawal. * Suicidal ideation (?) * History of chronic diseases: BOBBY, morbid obesity, etoh abuse Plan: Alcohol withdrawal: * Patient was taking 1 bottle daily alcohol * He having history of multiple detox * Last time he was admitted at [facility] for alcohol detox * He left hospital AMA * Patient CIWA is 0 today * He is on Ativan 2 mg q8 * Will taper off antibiotic accordingly * Be continued give him folic acid, thiamine * May continue giving him multivitamin * He is on 1-1 sitter * We will give him lorazepam IV as needed with normal dose Suicidal ideation : * Patient currently having no suicidal ideation * Previously he used recent suicidal meniscectomies. * He is on one-to-one sitter * Psychiatric RECOMMENDATION APPRECIATED * Will follow psychiatric recommendation *DVT GI prophylaxis *Full code Problem List: 1. Status post alcohol detoxification 2. ETOH abuse 3. Sleep apnea Pain Ratin Pain Location: no pain Pain Goal: Remain pain free Pain Plan: pain managment pathway Tomorrow's Labs & Rationales: cbc. Maria Cabrera 07/01/18 1005: Attending MD Review Statement Attending Statement Attending MD Statement: examined this patient, discuss w/resident/PA/GUILLOTINE OPERATOR, agreed w/resident/PA/GUILLOTINE OPERATOR, discussed with family, reviewed EMR data (avail), discussed with nursing, discussed with case mgmt, reviewed images, amended to note Attending Assessment/Plan: 43-year-old male with past medical history significant for morbid obesity, alcohol use disorder with multiple admissions for detox, reported alcohol related seizure, presents to [facility] requesting detox. Patient overnight with bp 150/70 HR 70-80 He is sleeping comfrotably this am. CIWA overnight 3-8 Continue ativan taper, replace electrolytes as needed. Thiamine, folic acid. GI/ dvt prophyalxis
--- NOTE | 2018-07-01 10:59 | Cons- Psychiatry ---
Psychiatric Consult Date of Consult: 07/01/18 Reason for Consult: Assessment of suicidal ideation History of Present Illness: This 43-year-old male presented to the emergency room with a blood alcohol level of 528 requesting detox from alcohol. He was accompanied by a friend who states that the patient had made suicidal comments in the text. The patient was admitted here in February of this year with similar presentation. The patient reports that he is here to get help with his alcohol "I am screwing up my whole life with alcohol". He adamantly denies having made any suicidal statements or texts saying "my friend must have made it up to make me get help with my drinking". The patient reports that following his last discharge he was sober until about mid way through April. He enjoys his life also over. He went to a picnic and "I thought I could have a couple of drinks". His drinking quickly escalated and he is now drinking roughly a handle of vodka a day. He endorses daily withdrawal symptoms but denies blackouts. He has a history of one alcohol withdrawal related seizure. No history of delirium tremens. He denies any other substances. Urine was positive for benzodiazepines which may have been administered in the emergency room. The patient describes his mood as "depressed". Sleep is poor with initial insomnia and reduced appetite for the past week. Energy and concentration are normal. He is not suicidal or homicidal. There are no psychotic symptoms. Psychiatric history: No history of psychiatric hospitalizations. No history of deliberate self-harm or suicide attempts. The patient was taking bupropion from his PCP but discontinued it following his last discharge. Substance abuse history: The patient started drinking at the age of 15. He says that alcohol became a problem in 2004 following the of his brother. He has had 2 rehabs both in the past year, one at [place] and one at [facility]. He maintained sobriety for some time afterwards. He has not been engaged with AA in the past but has recently started going to meetings and intends to strengthen his connection to them. He has never taken any medication to help with relapse prevention. He denies any other drug use. Family psychiatric history: Positive for alcohol in his brother and father. No history of psychiatric illness. No family history of suicide. 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 He lost his job roughly 1 month ago due to his alcohol use. He believes he could get back. His has moved out because of his alcohol use. He has 2 children aged 15 and 12. He currently lives alone. His father lives nearby and picks them up every day. 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 Allergies: Coded Allergies: No Known Allergies (02/20/18) Current Medications: Med Acetaminophen 500 MG PO Q6P PRN 06/30/18 2130 Clonidine 0.1 MG PO TID 06/30/18 1440 Enoxaparin Sodium 40 MG SC DAILY 07/01/18 0900 Folic Acid 1 MG PO DAILY 06/30/18 1445 Gabapentin 300 MG PO Q8 06/30/18 2200 Lorazepam IV Q1P PRN 06/30/18 1445 Lorazepam 2 MG PO Q8 07/01/18 1400 Multivitamins 1 TAB PO DAILY 06/30/18 1445 Omeprazole 40 MG PO DAILY AC 07/01/18 0700 Ondansetron HCl 4 MG IV Q4-6 PRN PRN 06/30/18 1445 Thiamine HCl 100 MG PO DAILY 06/30/18 1445 Past History Past Medical History Neurological: WITHDRAWAL SEIZURE EENT: NONE Cardiovascular: AFIB Respiratory: obstructive sleep apnea on CPAP Gastrointestinal: NONE Hepatic: NONE Renal: NONE Musculoskeletal: NONE, sciatica Psychiatric: alcohol dependence Blood Disorders: NONE Cancer(s): NONE AUDIT OFFICER/Reproductive: NONE Past Surgical History Surgical History: appendectomy Psychosocial History Strengths/Capabilities: supportive , family and motivated for treatment Physical Limitations (Interventions): Sharif reported. Pt is obese. Psychiatric Treatment History Diagnosis: None Risk Factors: high anxiety/distress, SA/MH hospitalized, substance abuse, male Substance Abuse Treatment Comments: See HPI Assessment/Plan Mental Status Orientation: Person, Place, Situation Mental Status Exam: 43-year-old obese male seen lying in his hospital bed. Drowsy but oriented 3 and able to participate in interview. Pleasant and appropriate. No evidence of tremor or diaphoresis. Eye contact fair. Speech low in volume, monotonous, normal in rhythm and tone. Mood depressed, affect flat. Not suicidal or homicidal. Thought process normal in tempo, stream and form with no delusions or obsessions. Attention and concentration fair. No perceptual abnormality. Impulse control good. Intelligence level likely average, fund of knowledge average, use of language appropriate. Recent and remote memory intact. Insight good, judgment unimpaired. Lab Results: Lab ALT 99 U/L H 06/29/18 1834 AST 113 U/L H 06/29/18 1834 Albumin 4.1 g/dL 06/29/18 1834 Alkaline Phosphatase 103 U/L 06/29/18 1834 Anion Gap 7 07/01/18 0816 BUN 10 mg/dL 07/01/18 0816 Carbon Dioxide 32 mmol/L H 07/01/18 0816 Chloride 96 mmol/L L 07/01/18 0816 Creatinine 0.6 mg/dL L 07/01/18 0816 Globulin 3.5 gm/dL 06/29/18 1834 Magnesium 1.2 mg/dL L 07/01/18 0816 Potassium 3.3 mmol/L L 07/01/18 0816 Sodium 135 mmol/L L 07/01/18 0816 Total Bilirubin 2.1 mg/dL H 06/29/18 1834 Total Protein 7.6 g/dL 06/29/18 1834 Serum Alcohol 528.0 MG/DL 06/29/18 1834 U Benzodiazepines Scrn 234 NG/ML H 06/29/18 2155 Diffential Diagnosis: -Alcohol withdrawal without perceptual abnormality -Alcohol use disorder severe dependence -Major depressive disorder recurrent moderate versus substance-induced mood disorder -History of alcohol withdrawal related seizures Impression: 43-year-old male currently undergoing detoxification from alcohol. Uncomplicated withdrawals as far. On gabapentin as anticonvulsant precaution. Presenting with symptoms of depression. Not suicidal, homicidal or psychotic. Significant psychosocial stressors. Provisional Treatment Plan: - Continue detox protocol; monitor CIWA scores and vitals. - Suggest managing with po lorazepam and discontinuing iv with lowest amoutn of PRNs necessary - Discontinue constant observation - Pt agrees to [facility] on discharge Psychiatry will review the patient tomorrow when he is less sedated and discuss antidepressant medication as well as medication to help with relapse prevention. Thank you for consulting us on this patient.
--- NOTE | 2018-07-01 14:34 | Discharge Summary ---
Visit Information Visit Dates Admission Date: 06/30/18 Discharge Date: 07/04/18 Hospital Course Course Attending Physician: Maria Jose MD Primary Care Physician: Toy Aguilera MD Hospital Course: 43-year-old morbidly obese male with past medical history alcohol disorder status post multiple admission for alcohol detox, reported alcohol-related seizure, past medical history of A. fib not on anticoagulant, obstructive sleep apnea on CPAP, history of suicidal ideation texted to his friend presented to [facility] for alcohol detox Hospital course: At the time of presentation to hospital his vitals and labs are given below Vitals: Blood pressure 136/90, pulse rate 75, respiratory rate 20, temperature 98.0, oxygen saturation 95% Labs: WBC 5.5, hemoglobin/hematocrit 16.3/48.0, MCV 91.2, platelet 93 Sodium 140, potassium 3.6, creatinine 0.7, glucose 116 Calcium 8.2, magnesium 1.4, potassium 3.4. He was treated for the following problems; * Etoh withdrawal. * History of chronic diseases: BOBBY, morbid obesity, etoh abuse * Pain and right wrist, left knee joint due to his current history of gout Plan: Alcohol withdrawal: He was treated for alcohol detox . He presented to ER with a high CIWA score he was started treating on lorazepam taper and on last day his CIWA was almost zero he was given 1mg of lorazepam at morning and one dose of lorazepam at 2pm two hour before discharge from Hospital. He was also given Thiamine, B12, folic acid ,and Bupropion 140mg his home medication. 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 Pain in the left knee joint/right wrist joint: Patient was taking pain NSAIDs for acute gout episode before comming to hospital. His Uric accid level was normal at Hospital. We started him on indomethacin and he responded well, his pain subsided. He was counseld regarding his diet to keep his uric acid level low. *Psychaitry recommendation appreciated. H was discharged after clearance from psychiatry. Allergies: Coded Allergies: No Known Allergies (02/20/18) Disposition Summary Disposition Principal Diagnosis: Alcohol withdral Additional Diagnosis: Gout BOBBY Discharge Disposition: home or self care Discharge Instructions General Discharge Information Code Status: Full Code Patient's Diet: Regular diet but low in uric acid Patient's Activity: self limitid Follow-Up Instructions/Appts: Please contact your [facility] care physician in one week please follow up with your appointment at [facility] according to scheduled appointment on 07/11/18 In case of medical attention please contacct your [facility] care doctor Medications at Discharge Discharge Medications: Stop taking the following medications: Fish Oil (Sea-[place] 50 Capsule) 1 EACH CAPSULE ORAL DAILY C/Sourcherry/Celery/Grape Seed (Tart [place] Capsule) 1 EACH CAPSULE ORAL DAILY Prednisone (Prednisone) 10 MG TABLET ORAL DAILY Qty = 5 Lorazepam (Ativan) 0.5 MG TABLET ORAL TWICE DAILY Qty = 3 Continue taking these medications: Multivitamin (Multi-Day Vitamins) 1 EACH TABLET 1 Tablet ORAL Every Morning Comments: Last Taken: 04/11/17 Time: 9:00 AM Thiamine HCl (Vitamin B-1) 100 MG TABLET 100 Milligram ORAL DAILY Days = 30 Comments: Last Taken: 07/04/18 Time: 9:00 AM Folic Acid (Folic Acid) 1 MG TABLET 1 Tablet ORAL DAILY Qty = 30 Comments: Last Taken: 07/04/18 Time: 0900 AM Clonidine HCl (Clonidine HCl) 0.1 MG TABLET 1 Tablet ORAL THREE TIMES DAILY Qty = 30 Comments: LAST TAKEN: 07/04/18 @ 2 PM Gabapentin (Gabapentin) 300 MG CAPSULE 1 Capsule ORAL EVERY 8 HOURS Qty = 30 Comments: NOT TAKEN IN HOSPITAL Indomethacin (Indomethacin) 50 MG CAPSULE 1 Capsule ORAL EVERY 8 HOURS Qty = 30 Instructions: with food Comments: LAST TAKEN: 07/04/18 @ 9 AM Bupropion HCl (Bupropion XL) 150 MG TAB.ER.24H 1 Tablet ORAL DAILY Qty = 30 This prescription has been renewed Start taking the following new medications: Omeprazole (Omeprazole) 20 MG TABLET.DR 1 Tablet ORAL DAILY Qty = 30 No Refills Copies To: Willy LOGAN,Toy Fisher Attending MD Review Statement Documenting Attending: Rebeca LOGAN,Maria Other Findings: Patient with overall clinical improvement. Eufemia noted. Thiamine/ folic acid. Clonidine for bp control and better controlled. Patient medically stable for discharge. Follow up with PCP in 1 week after discharge.
--- NOTE | 2018-07-01 15:29 | Patient Discharge Instructions ---
Discharge Instructions General Discharge Information Special Instructions: Please follow-up with your primary care physician in 1 week Please follow-up with Leonard MUÑOZ according to schedule appointment Diet Continue normal diet: Yes Activity Activity Self Limited: Yes Acute Coronary Syndrome Inclusion Criteria At DC or during hospital stay patient has or had the following: ACS DIAGNOSIS No Discharge Core Measures Meds if any: Prescribed or Continued at Discharge Meds if any: NOT Prescribed or Continued at Discharge Congestive Heart Failure Inclusion Criteria At DC or during hospital stay patient has or had the following: CHF DIAGNOSIS No Discharge Core Measures Meds if any: Prescribed or Continued at Discharge Meds if any: NOT Prescribed or Continued at Discharge Cerebrovascular accident Inclusion Criteria At DC or during hospital stay patient has or had the following: CVA/TIA Diagnosis No Discharge Core Measures Meds if any: Prescribed or Continued at Discharge Meds if any: NOT Prescribed or Continued at Discharge Venous thromboembolism Inclusion Criteria VTE Diagnosis No VTE Type NONE VTE Confirmed by (Test) NONE Discharge Core Measures - Per Current guidelines, there needs to be overlap - treatment for the first 5 days of Warfarin therapy. - If discharged on Warfarin prior to 5 days of - overlap therapy, the patient will need to be - assessed for post discharge needs including - *Post discharge parental anticoagulation - *Warfarin and/or parental anticoagulation education - *Follow up date to check INR post discharge At least 5 days overlap therapy as Inpatient No Meds if any: Prescribed or Continued at Discharge Note: Overlap Therapy is Warfarin and Anticoagulant Meds if any: NOT Prescribed or Continued at Discharge
[2018-07-02] VITALS (14 sets, daily range): BP systolic 110–1308; BP diastolic 58–80
--- NOTE | 2018-07-02 07:43 | PN- Housestaff ---
Stefan Acuna 07/02/18 0742: Subjective Follow-up For: Alcohol detox Subjective: Patient seen and examined at bedside. He was complaining of pain in the left knee as well as on the right wrist joint. He denies fever, chills, chest pain, palpitation, abdominal pain, diarrhea, constipation, seizure, sweating, anxiety. Review of Systems Constitutional: Reports: see HPI. Objective Last 24 Hrs of Vital Signs/I&O Vital Signs Date Time Temp Pulse Resp B/P B/P Pulse O2 O2 Flow FiO2 Mean Ox Delivery Rate 07/02 0916 98.6 75 20 150/80 07/02 0607 98.6 75 20 150/80 98 Room Air 07/02 0600 98.6 75 20 150/80 07/02 0500 98.6 70 20 1308/80 07/02 0400 98.6 80 20 130/80 07/02 0200 98.4 74 20 110/58 07/02 0200 98.4 74 20 110/58 91 Room Air 07/02 0133 76 94 07/02 0100 98.4 85 20 120/78 07/01 2209 99.5 97 20 122/76 97 Room Air 07/01 2202 82 96 / 2200 99.5 97 20 122/76 07/01 2130 132/76 07/01 1900 92 17 150/80 07/01 1600 Room Air 07/01 1600 98.2 76 12 130/50 07/01 1400 99.1 75 20 125/78 07/01 1332 99.1 75 20 125/78 97 07/01 1324 98.0 75 20 136/90 07/01 1200 99.1 75 20 125/78 Intake & Output 07/02 1600 07/02 0800 07/02 0000 Intake Total 260 700 Output Total Balance 260 700 Intake, IV 20 40 Intake, Oral 240 660 Physical Exam General Appearance: Alert, Oriented X3, Cooperative, No Acute Distress Cardiovascular: Normal S1, Normal S2 Lungs: Clear to Auscultation, Normal Air Movement Abdomen: Normal Bowel Sounds, Soft, No Tenderness Neurological: Normal Gait, Normal Speech, Strength at 5/5 X4 Ext, Normal Tone Extremities: No Clubbing, No Cyanosis, No Edema, Normal Pulses Assessment/Plan Assessment: 43-year-old morbidly obese male with past medical history alcohol disorder status post multiple admission for alcohol detox, reported alcohol-related seizure, past medical history of A. fib not on anticoagulant, obstructive sleep apnea on CPAP, history of suicidal ideation texted to his friend presented to [facility] for alcohol detox At the time of presentation to hospital his vitals and labs are given below Vitals: Blood pressure 136/90, pulse rate 75, respiratory rate 20, temperature 98.0, oxygen saturation 95% Labs: WBC 5.5, hemoglobin/hematocrit 16.3/48.0, MCV 91.2, platelet 93 Sodium 140, potassium 3.6, creatinine 0.7, glucose 116 Calcium 8.2, magnesium 1.4, potassium 3.4. Problems list: * Etoh withdrawal. * History of chronic diseases: BOBBY, morbid obesity, etoh abuse * Pain and right wrist, left knee joint due to his current history of gout Plan: Alcohol withdrawal: * Patient was in alcohol withdrawal at the time of admission CIWA score was high * His last CIWA score was 5 * His lorazepam is taper from 2 mg to 1.5 mg every 8 * He is feeling well * He is determined for [facility] follow-up Pain in the left knee joint/right wrist joint: He is correlating the pain to his recent history of gout He was taking treatment NSAIDs and short course of steroid He will continue his indomethacin Anticipated discharge tomorrow We will follow psychiatry recommendation/clearance for discharge *DVT GI prophylaxis *Full code Problem List: 1. Status post alcohol detoxification 2. Hypokalemia 3. Sleep apnea 4. ETOH abuse Pain Ratin Pain Location: Right wrist, left knee Pain Goal: Remain pain free Pain Plan: Pain management pathway Tomorrow's Labs & Rationales: No labs Maria Jose 07/02/18 1205: Attending MD Review Statement Attending Statement Attending MD Statement: examined this patient, discuss w/resident/PA/PRESCHOOL PRINCIPAL, agreed w/resident/PA/PRESCHOOL PRINCIPAL, discussed with family, reviewed EMR data (avail), discussed with nursing, discussed with case mgmt, reviewed images, amended to note Attending Assessment/Plan: 43-year-old male with past medical history significant for morbid obesity, alcohol use disorder with multiple admissions for detox, reported alcohol related seizure, presents to [facility] requesting detox. Patient overnight with bp 150/80 HR 70-80 He is sleeping comfortably this am. No new complaints. Eufemia noted. Continue ativan taper, replace electrolytes as needed. Thiamine, folic acid. GI/dvt prophyalxis Agreeable to come to IOP [facility] at discharge.
--- NOTE | 2018-07-02 13:55 | PN- Psychiatry ---
Assessment/Plan Impression: - Uneventful detox - MDD moderate with anxious distress vs substance-induced mood disorder. H/O positive response to bupropion. Explained risks, benefits and possible side effects. Pt acknowledged and understood. - Agreeable to IOP. Has done three rehab programmes this year. Feels IOP will be more helpful. - Declines medication to help with relapse prevention at this time Suggestion: - Continue detox as ordered. - Start bupropion XL 150 mg po daily - [facility] IOP 07/11 at 8.30 am Subjective Subjective: Feels "depressed", anxious. Ruminative re effects of alcohol on his life. Not suicidal, homicidal or psychotic. Tolerating detox well. Objective Last 24 Hrs of Vital Signs/I&O Vital Signs Date Time Temp Pulse Resp B/P B/P Pulse O2 O2 Flow FiO2 Mean Ox Delivery Rate 07/02 0916 98.6 75 20 150/80 07/02 0800 98.6 75 20 150/80 07/02 0607 98.6 75 20 150/80 98 Room Air 07/02 0600 98.6 75 20 150/80 07/02 0500 98.6 70 20 1308/80 07/02 0400 98.6 80 20 130/80 07/02 0200 98.4 74 20 110/58 07/02 0200 98.4 74 20 110/58 91 Room Air 07/02 0133 76 94 07/02 0100 98.4 85 20 120/78 07/01 2209 99.5 97 20 122/76 97 Room Air 07/01 2202 82 96 / 2200 99.5 97 20 122/76 07/01 2130 132/76 07/01 1900 92 17 150/80 07/01 1600 Room Air 07/01 1600 98.2 76 12 130/50 07/01 1400 99.1 75 20 125/78 Intake & Output 07/02 1600 07/02 0800 07/02 0000 Intake Total 260 700 Output Total Balance 260 700 Intake, IV 20 40 Intake, Oral 240 660 Physical Exam: Alert and oriented x 3. Obese. No tremor/diaphoresis. HR normal, bp 150/80 mmHg. Good eye contact. Speech low volume, normal rate, rhythm and tone. Mood depressed, affect mood congruent with anxiety. Not suicidal or homicidal. Thought process normal in tempo, stream and form with no delusions or obsessions. Attention and concentration unimpaired. No perceptuial abnormality. Impulse control good. Intelligence level average, fund of knowledge average, use of language appropriate. Recent and remote memory intact. Insight fair. Judgement unimpaired.
[2018-07-03] VITALS (13 sets, daily range): BP systolic 110–142; BP diastolic 72–778
--- NOTE | 2018-07-03 06:55 | PN- Housestaff ---
Stefan Acuna 07/03/18 0654: Subjective Follow-up For: Alcohol detox Alcohol withdrawl Subjective: Patient seen and examined at bedside. He denies any tremors, seizure, sweating, apprehension, palpitation, headache, fever, chills, abdominal pain, constipation , diarrhea. Review of Systems Constitutional: Reports: see HPI. Objective Last 24 Hrs of Vital Signs/I&O Vital Signs Date Time Temp Pulse Resp B/P B/P Pulse O2 O2 Flow FiO2 Mean Ox Delivery Rate 07/03 0616 98.3 67 20 130/78 97 Room Air 07/03 0600 98.3 67 20 130/78 07/03 0210 98.0 78 24 110/80 97 Room Air 07/03 0200 98.0 78 24 110/80 07/02 2306 74 98 07/02 2231 99.1 82 20 130/80 96 Room Air 07/02 2200 98.9 82 16 130/80 07/02 1830 98.1 78 20 112/70 96 Room Air 07/02 1447 98.7 85 20 130/80 96 Room Air 07/02 1412 98.6 75 20 150/80 07/02 0916 98.6 75 20 150/80 Intake & Output 07/03 1600 07/03 0800 07/03 0000 Intake Total 490 900 Output Total Balance 490 900 Intake, IV 10 Intake, Oral 480 900 Physical Exam General Appearance: Alert, Oriented X3, Cooperative, No Acute Distress HEENT: Atraumatic, PERRLA, EOMI, Mucous Membr. moist/pink Cardiovascular: Normal S1, Normal S2 Lungs: Clear to Auscultation, Normal Air Movement Abdomen: Normal Bowel Sounds, Soft, No Tenderness Extremities: No Clubbing, No Cyanosis, No Edema, Normal Pulses Assessment/Plan Assessment: 43-year-old morbidly obese male with past medical history alcohol disorder status post multiple admission for alcohol detox, reported alcohol-related seizure, past medical history of A. fib not on anticoagulant, obstructive sleep apnea on CPAP, history of suicidal ideation texted to his friend presented to [facility] for alcohol detox At the time of presentation to hospital his vitals and labs are given below Vitals: Blood pressure 136/90, pulse rate 75, respiratory rate 20, temperature 98.0, oxygen saturation 95% Labs: WBC 5.5, hemoglobin/hematocrit 16.3/48.0, MCV 91.2, platelet 93 Sodium 140, potassium 3.6, creatinine 0.7, glucose 116 Calcium 8.2, magnesium 1.4, potassium 3.4. Problems list: * Etoh withdrawal. * History of chronic diseases: BOBBY, morbid obesity, etoh abuse * Pain and right wrist, left knee joint due to his current history of gout Plan: Alcohol withdrawal: * Patient CIWA 0 today * He took 7.5 mg lorazepam since yesterday morning * He is on 1.5 mg lorazepam taper from q8 to q12 today. * Psychiatry recommendation appreciated * She recommended bupropion 150 mg orally * Patient agreed to go to [facility] on 07/11 . * We are giving him thiamine and folic acid Pain in the left knee joint/right wrist joint: * Patient pain due to gout is subsided with indometacin * He is not complaining of any pain right now * Will follow further We will follow psychiatry recommendation/clearance for discharge *DVT GI prophylaxis *Full code Problem List: 1. Status post alcohol detoxification 2. Gout 3. Hypomagnesemia 4. Hypokalemia 5. Sleep apnea Pain Ratin Pain Location: No pain Pain Goal: Remain pain free Pain Plan: Pain management pathway Tomorrow's Labs & Rationales: Maria Cabrera 07/03/18 1042: Attending MD Review Statement Attending Statement Attending MD Statement: examined this patient, discuss w/resident/PA/VEIN ACCESS TECHNICIAN, agreed w/resident/PA/VEIN ACCESS TECHNICIAN, discussed with family, reviewed EMR data (avail), discussed with nursing, discussed with case mgmt, reviewed images, amended to note Attending Assessment/Plan: Patient with overall clinical improvement. He is on his ativan taper for his alcohol withdrawal. Eufemia noted. Thiamine/ folic acid. Clonidine for bp control and better controlled. Patient needs to see SW before discharge. Inform SW. Continue current care..
[2018-07-04] VITALS (10 sets, daily range): BP systolic 128–140; BP diastolic 76–80
--- NOTE | 2018-07-04 07:33 | PN- Housestaff ---
Stefan Acuna 07/04/18 0733: Subjective Follow-up For: Alcohol detox Subjective: Patient seen and examined at bedside. He having no active complaint. He is concerned to go home at 4 PM sharp. He denies palpitation, sweating, chest pain , seizure, abdominal pain, diarrhea, constipation, burning micturition,. Review of Systems Constitutional: Reports: see HPI. Objective Last 24 Hrs of Vital Signs/I&O Vital Signs Date Time Temp Pulse Resp B/P B/P Pulse O2 O2 Flow FiO2 Mean Ox Delivery Rate 07/04 1556 97.8 89 20 130/80 98 07/04 1405 97.9 62 20 140/80 07/04 1400 97.6 68 20 134/78 07/04 1200 97.4 68 20 134/78 07/04 1145 97.9 62 20 140/80 97 07/04 1000 97.4 68 20 134/78 07/04 0831 97.4 68 20 134/78 07/04 0800 97.4 68 20 134/78 07/04 0600 97.4 68 20 134/78 07/04 0552 97.4 68 20 134/78 96 Room Air 07/04 0200 97.6 64 20 128/76 07/04 0158 97.6 64 20 128/76 95 Room Air 07/04 0008 61 98 07/03 2200 97.5 80 16 128/74 Intake & Output 07/04 1600 07/04 0800 07/04 0000 Intake Total 500 490 800 Output Total Balance 500 490 800 Intake, IV 10 Intake, Oral 500 480 800 Physical Exam General Appearance: Alert, Oriented X3, Cooperative, No Acute Distress Cardiovascular: Normal S1, Normal S2 Lungs: Clear to Auscultation, Normal Air Movement Abdomen: Normal Bowel Sounds, Soft, No Tenderness, No Hepatospenomegaly, No Masses Extremities: No Clubbing, No Cyanosis, Normal Pulses, No Tenderness/Swelling Assessment/Plan Assessment: 43-year-old morbidly obese male with past medical history alcohol disorder status post multiple admission for alcohol detox, reported alcohol-related seizure, past medical history of A. fib not on anticoagulant, obstructive sleep apnea on CPAP, history of suicidal ideation texted to his friend presented to [facility] for alcohol detox At the time of presentation to hospital his vitals and labs are given below Vitals: Blood pressure 136/90, pulse rate 75, respiratory rate 20, temperature 98.0, oxygen saturation 95% Labs: WBC 5.5, hemoglobin/hematocrit 16.3/48.0, MCV 91.2, platelet 93 Sodium 140, potassium 3.6, creatinine 0.7, glucose 116 Calcium 8.2, magnesium 1.4, potassium 3.4. Problems list: * Etoh withdrawal. * History of chronic diseases: BOBBY, morbid obesity, etoh abuse * Pain and right wrist, left knee joint due to his current history of gout Plan: Alcohol withdrawal: * Patient CIWA score was 0 today * He is on 1 mg lorazepam to 12 hourly * His as needed dose stopped * Bupropion 150 mg orally continued * Thiamine, B12, folic acid started Pain in the left knee joint/right wrist joint: * Patient is normal complaining of pain after indomethacin * We will follow psychiatry recommendation/clearance for discharge *DVT GI prophylaxis *Full code Problem List: 1. Alcohol intoxication 2. Morbid obesity 3. ETOH abuse 4. Sleep apnea 5. Status post alcohol detoxification 6. Gout Pain Ratin Pain Location: No pain Pain Goal: Remain pain free Pain Plan: Pain management pathway Tomorrow's Labs & Rationales: No labs Maria Jose 07/04/18 1141: Attending MD Review Statement Attending Statement Attending MD Statement: examined this patient, discuss w/resident/PA/BLEND PLANT OPERATOR, agreed w/resident/PA/BLEND PLANT OPERATOR, discussed with family, reviewed EMR data (avail), discussed with nursing, discussed with case mgmt, reviewed images, amended to note Attending Assessment/Plan: Patient with overall clinical improvement. He is on his ativan taper for his alcohol withdrawal. He will recieve his last dose today and can be discharged in stable condition. Eufemia noted. Thiamine/ folic acid. Clonidine for bp control and better controlled. Patient requests again to see SW before discharge. Inform SW. Anticipate discharge soon.
[2018-07-04] MEDS ORDERED: BUPROPION XL150 MG PO ×2 (10:30→15:44)
[2018-07-04] MEDS ORDERED: OMEPRAZOLE20 M3 PO (10:34)
== END 2018-07-04 16:00 | DRG 897 ==
LOC: ERH 17:57 → 2NA 06-30 13:45 → ERHI 06-30 13:45 → ENRESERV 06-30 16:04 → ENTRNSPT 06-30 17:14 → 2NA 06-30 17:29 → CMPTRNSPT 06-30 17:33 → 2NA 07-04 16:00
PROVIDERS: Emergency Medicine; Physician Assistant
DX: F10.239 Alcohol dependence with withdrawal, unspecified (principal); Z68.43 Body mass index [BMI] 50.0-59.9, adult; F10.229 Alcohol dependence with intoxication, unspecified; Y90.8 Blood alcohol level of 240 mg/100 ml or more; E66.01 Morbid (severe) obesity due to excess calories; G47.33 Obstructive sleep apnea (adult) (pediatric); Z81.1 Family history of alcohol abuse and dependence; F32.9 Major depressive disorder, single episode, unspecified; F41.9 Anxiety disorder, unspecified; M10.9 Gout, unspecified; E87.6 Hypokalemia; M25.531 Pain in right wrist; M25.562 Pain in left knee
CPT/HCPCS: 2NAP; 36592; 72100; 80307; 82436; G0480; J1650; J2405; J2550; J3490